=== PATIENT | female | born 1945 | race Caucasian/White ===

== ENCOUNTER 2017-12-09 06:13 | Inpatient (IN) | payer MEDICARE, BC ==
[2017-12-09] MEDS: ONDANSETRON 4 MG INJ IV ×3 (06:50→21:02)
[2017-12-09] MEDS: morphine 4 MG/ML VIAL IV (06:50)
[2017-12-09 07:02] LABS: ADD MAN DIFF? NO
[2017-12-09 07:07] LABS: BASOPHIL # 0.1 10^3/ul (0.0-0.1); BASOPHILS % 0.5 % (0.0-2.0); EOSINOPHILS # 0.1 10^3/ul (0.0-0.5); EOSINOPHILS % 0.8 % (0.0-7.0); HEMATOCRIT 38.4 % (37.0-47.0); HEMOGLOBIN 11.8 g/dl (12.0-16.0); LYMPHOCYTES # 0.6 10^3/ul (0.8-2.9); MEAN CORPUSCULAR HGB CONC 30.7 g/dl (32.0-37.0); MEAN CORPUSCULAR VOLUME 104.1 fl (82.0-101.0); MEAN PLATELET VOLUME 10.5 fl (7.4-10.4); MONOCYTE # 0.8 10^3/ul (0.3-0.9); MONOCYTES % 7.8 % (0.0-11.0); NEUTROPHIL # 8.4 10^3/ul (1.6-7.5); NEUTROPHILS % 84.4 % (39.0-77.0); PLATELET COUNT 258 10^3/UL (140-415); RED BLOOD COUNT 3.69 10^6/ul (4.20-5.40); RED CELL DISTRIBUTION WIDTH 14.4 % (11.5-14.5)
[2017-12-09] MEDS: SOD CHLORIDE 0.9% 100 ML (07:17)
[2017-12-09] MEDS: IOHEXOL 300MG/ML 150 ML BTL (07:17)
[2017-12-09] MEDS: HYDROmorphONE 0.5 MG/0.5 ML SYG IV (07:20)
[2017-12-09] MEDS: NITROGLYCERIN 2% 1 GM OINT PKT TD ×3 (07:23→07:42)
[2017-12-09 07:27] LABS: ANION GAP 20 (8-16); BLOOD UREA NITROGEN 57 mg/dl (7-20); CALCIUM 9.3 mg/dl (8.4-10.2); CARBON DIOXIDE 26 mmol/L (21-31); CHLORIDE 103 mmol/L (97-110); CREATININE 4.86 mg/dl (0.44-1.00); GLUCOSE 201 mg/dl (70-220); POTASSIUM 5.5 mmol/L (3.5-5.1); SODIUM 143 mmol/L (135-144)
[2017-12-09 07:31] LABS: INR 0.97; PARTIAL THROMBOPLASTIN TIME 32.5 Sec (25.0-35.0)
[2017-12-09 07:38] LABS: TROPONIN-I < 0.012 ng/ml (0.00-0.12)
[2017-12-09] MEDS: ASPIRIN 81 MG TAB PO (07:42)
[2017-12-09] MEDS: SOD CHLORIDE 0.9% 500 ML IV (07:51)
[2017-12-09] MEDS ORDERED: ONDANSETRON 4 MG INJ IV (08:00)
[2017-12-09] MEDS ORDERED: ACETAMINOPHEN 325 MG TAB PO ×2 (08:00→15:00)
[2017-12-09] MEDS ORDERED: NACL 0.9% 3 ML SYG IV (10:30)
[2017-12-09] MEDS ORDERED: morphine 2 MG INJ IV (10:30)
[2017-12-09 11:19] LABS: CREATINE KINASE 36 IU/L (23-200)
[2017-12-09 11:31] LABS: CK INDEX 4.1; CK-MB 1.49 ng/ml (0.0-2.4)
[2017-12-09 11:42] LABS: TROPONIN-I < 0.012 ng/ml (0.00-0.12)
[2017-12-09 13:31] LABS: CREATINE KINASE 34 IU/L (23-200)
[2017-12-09 13:44] LABS: CK INDEX 4.3; CK-MB 1.46 ng/ml (0.0-2.4)
[2017-12-09 13:47] LABS: TROPONIN-I < 0.012 ng/ml (0.00-0.12)
[2017-12-09] MEDS ORDERED: BISACODYL (EC) 5 MG TAB PO (15:00)
[2017-12-09] MEDS: SUCRALFATE 1 GM TAB PO ×2 (17:30→22:59)
[2017-12-09] MEDS: SEVELAMER CARBONATE 0.8 GM PKT PO (17:45)
[2017-12-09] MEDS: PANTOPRAZOLE (EC) 40 MG TAB PO (17:45)
[2017-12-09 19:24] LABS: CREATINE KINASE 31 IU/L (23-200)
[2017-12-09 19:37] LABS: CK INDEX 3.9; CK-MB 1.22 ng/ml (0.0-2.4); TROPONIN-I < 0.012 ng/ml (0.00-0.12)
[2017-12-09] MEDS: morphine LIQ (10 MG/5 ML) CUP PO (21:02)
[2017-12-09] MEDS: GABAPENTIN 100 MG CAP PO (22:59)
[2017-12-09] MEDS: ATORVASTATIN 40 MG TAB PO (22:59)
[2017-12-10] MEDS ORDERED: DEXTROSE 50% 50 ML SYRINGE IV ×2 (00:30)
[2017-12-10] MEDS ORDERED: GLUCOSE GEL 15 GRAM TUBE BUCCAL (00:30)
[2017-12-10] MEDS: INSULIN ASPART [NOVOLOG] 3 ML PEN SC ×5 (00:30→21:00)
[2017-12-10] MEDS ORDERED: GLUCOSE GEL 15 GRAM TUBE PO ×2 (00:30)
[2017-12-10] MEDS ORDERED: GLUCAGON 1 MG INJ IM (00:30)
[2017-12-10] MEDS: ALBUMIN HUMAN 25% 50 ML IV ×3 (00:44→20:39)
[2017-12-10 01:07] LABS: CREATINE KINASE 26 IU/L (23-200)
[2017-12-10 01:20] LABS: CK-MB 0.79 ng/ml (0.0-2.4)
[2017-12-10 01:21] LABS: TROPONIN-I < 0.012 ng/ml (0.00-0.12)
[2017-12-10 01:38] LABS: HEPATITIS B SURFACE ANTIGEN NEGATIVE (NEGATIVE)
[2017-12-10 01:56] LABS: HEPATITIS B SURFACE ANTIBODY POSITIVE (NEGATIVE)
[2017-12-10] MEDS: HYDROCODONE/APAP (5/325) TAB PO ×2 (02:55→08:51)
[2017-12-10] MEDS ORDERED: PANTOPRAZOLE 40 MG INJ IV (06:00)
[2017-12-10] MEDS: PANTOPRAZOLE (EC) 40 MG TAB PO ×2 (06:15→16:55)
[2017-12-10] MEDS: LEVOTHYROXINE 50 MCG TAB PO (06:15)
[2017-12-10] MEDS: morphine LIQ (10 MG/5 ML) CUP PO ×2 (06:21→12:37)
[2017-12-10] MEDS: SUCRALFATE 1 GM TAB PO ×5 (07:25→22:12)
[2017-12-10] MEDS: SEVELAMER CARBONATE 0.8 GM PKT PO ×3 (07:44→16:55)
[2017-12-10 08:59] LABS: CHOL/HDL RATIO 1.6 RATIO; HDL CHOLESTEROL 61 mg/dl (33-92); LDL CHOLESTEROL,CALCULATED 29 mg/dl; TRIGLYCERIDES 65 mg/dl (0-149)
[2017-12-10 08:59] LABS: CHOLESTEROL 103 mg/dl (100-200)
[2017-12-10] MEDS: GABAPENTIN 100 MG CAP PO ×3 (09:00→22:12)
[2017-12-10] MEDS: CHOLECALCIFEROL 1,000 UNIT TAB PO (09:00)
[2017-12-10] MEDS ORDERED: METOPROLOL 5 MG INJ (12:16)
[2017-12-10] MEDS ORDERED: METOPROLOL 5 MG INJ IV (12:30)
[2017-12-10] MEDS ORDERED: DIGOXIN 500 MCG INJ IV (12:40)
[2017-12-10] MEDS: DIGOXIN 500 MCG INJ IV (12:48)
[2017-12-10] MEDS: SOD CHLORIDE 0.9% 250 ML IV ×2 (14:02→21:12)
[2017-12-10] MEDS: FUROSEMIDE 20 MG TAB PO (14:59)
[2017-12-10] MEDS: FOLIC ACID 1 MG TAB PO (15:00)
[2017-12-10] MEDS: PIOGLITAZONE 45 MG TAB PO (15:00)
[2017-12-10] MEDS: ASPIRIN 81 MG TAB PO (15:01)
[2017-12-10] MEDS: AMIODARONE 150MG/D5W BOLUS 100 ML IV (19:04)
[2017-12-10] MEDS ORDERED: AMIODARONE 900 MG in DEXTROSE 5% 482 ML IV (20:00)
[2017-12-10] MEDS: ATORVASTATIN 40 MG TAB PO (22:12)
[2017-12-10] MEDS: HEPARIN 5,000 UNIT/0.5 ML VIAL SC (22:13)
[2017-12-11] MEDS: PHENYLephrine 20MG IN 250 ML 250 ML IV ×2 (00:53→12:11)
[2017-12-11] MEDS: ACETAMINOPHEN 325 MG TAB PO ×2 (00:54→16:56)
[2017-12-11 05:19] LABS: ADD MAN DIFF? NO
[2017-12-11 05:22] LABS: WHITE BLOOD COUNT 6.7 10^3/ul (4.8-10.8)
[2017-12-11 05:22] LABS: BASOPHILS % 0.4 % (0.0-2.0); EOSINOPHILS # 0.2 10^3/ul (0.0-0.5); EOSINOPHILS % 2.8 % (0.0-7.0); HEMOGLOBIN 10.1 g/dl (12.0-16.0); LYMPHOCYTES # 1.2 10^3/ul (0.8-2.9); LYMPHOCYTES % 17.1 % (15.0-51.0); MEAN CORPUSCULAR HEMOGLOBIN 31.9 pg (29.0-33.0); MEAN CORPUSCULAR HGB CONC 30.6 g/dl (32.0-37.0); MEAN CORPUSCULAR VOLUME 104.1 fl (82.0-101.0); MEAN PLATELET VOLUME 10.7 fl (7.4-10.4); MONOCYTE # 0.7 10^3/ul (0.3-0.9); MONOCYTES % 10.1 % (0.0-11.0); NEUTROPHIL # 4.6 10^3/ul (1.6-7.5); NEUTROPHILS % 69.2 % (39.0-77.0); PLATELET COUNT 257 10^3/UL (140-415); RED BLOOD COUNT 3.17 10^6/ul (4.20-5.40); RED CELL DISTRIBUTION WIDTH 14.4 % (11.5-14.5)
[2017-12-11 05:49] LABS: PHOSPHORUS 7.9 mg/dl (2.5-4.9)
[2017-12-11 05:49] LABS: ANION GAP 19 (8-16); BLOOD UREA NITROGEN 44 mg/dl (7-20); CARBON DIOXIDE 27 mmol/L (21-31); CHLORIDE 97 mmol/L (97-110); CREATININE 4.23 mg/dl (0.44-1.00); GLUCOSE 77 mg/dl (70-220); MAGNESIUM 2.2 mg/dl (1.7-2.5); SODIUM 138 mmol/L (135-144)
[2017-12-11] MEDS: HYDROCODONE/APAP (5/325) TAB PO ×2 (05:54→20:35)
[2017-12-11] MEDS: HEPARIN 5,000 UNIT/0.5 ML VIAL SC ×3 (06:28→21:12)
[2017-12-11] MEDS: PANTOPRAZOLE (EC) 40 MG TAB PO ×2 (06:29→16:56)
[2017-12-11] MEDS: LEVOTHYROXINE 50 MCG TAB PO (06:29)
[2017-12-11] MEDS: INSULIN ASPART [NOVOLOG] 3 ML PEN SC ×4 (06:30→21:00)
[2017-12-11] MEDS: SUCRALFATE 1 GM TAB PO ×4 (06:30→20:35)
[2017-12-11] MEDS: SEVELAMER CARBONATE 0.8 GM PKT PO ×3 (07:35→16:56)
[2017-12-11] MEDS: PIOGLITAZONE 15 MG TAB PO (09:34)
[2017-12-11] MEDS: FOLIC ACID 1 MG TAB PO (09:35)
[2017-12-11] MEDS: GABAPENTIN 100 MG CAP PO ×3 (09:35→20:35)
[2017-12-11] MEDS: ASPIRIN 81 MG TAB PO (09:35)
[2017-12-11] MEDS: CHOLECALCIFEROL 1,000 UNIT TAB PO (09:35)
[2017-12-11] MEDS: ALBUMIN HUMAN 25% 100 ML IV ×2 (10:50→16:57)
[2017-12-11] MEDS: SEVELAMER 800 MG TAB PO ×2 (11:07→16:56)
[2017-12-11] MEDS: CEFAZOLIN 1 GM/50 ML (PMX) 50 ML IVPB (16:00)
[2017-12-11] MEDS: ATORVASTATIN 40 MG TAB PO (20:35)
[2017-12-12] MEDS: ALBUMIN HUMAN 25% 100 ML IV (01:14)
[2017-12-12] MEDS: PHENYLephrine 20MG IN 250 ML 250 ML IV (01:16)
[2017-12-12] MEDS: morphine LIQ (10 MG/5 ML) CUP PO ×7 (01:24→21:43)
[2017-12-12] MEDS: HYDROCODONE/APAP (5/325) TAB PO (03:42)
[2017-12-12 03:44] LABS: ADD MAN DIFF? NO
[2017-12-12 03:50] LABS: WHITE BLOOD COUNT 7.6 10^3/ul (4.8-10.8)
[2017-12-12 03:50] LABS: ABNORMAL IP MESSAGE 1; BASOPHILS % 0.3 % (0.0-2.0); EOSINOPHILS # 0.2 10^3/ul (0.0-0.5); EOSINOPHILS % 2.1 % (0.0-7.0); HEMATOCRIT 33.9 % (37.0-47.0); HEMOGLOBIN 10.4 g/dl (12.0-16.0); LYMPHOCYTES # 0.5 10^3/ul (0.8-2.9); MEAN CORPUSCULAR HEMOGLOBIN 31.4 pg (29.0-33.0); MEAN CORPUSCULAR HGB CONC 30.7 g/dl (32.0-37.0); MEAN CORPUSCULAR VOLUME 102.4 fl (82.0-101.0); MEAN PLATELET VOLUME 10.3 fl (7.4-10.4); MONOCYTE # 0.6 10^3/ul (0.3-0.9); MONOCYTES % 7.2 % (0.0-11.0); NEUTROPHIL # 6.3 10^3/ul (1.6-7.5); NEUTROPHILS % 82.9 % (39.0-77.0); PLATELET COUNT 205 10^3/UL (140-415); RED BLOOD COUNT 3.31 10^6/ul (4.20-5.40); RED CELL DISTRIBUTION WIDTH 14.3 % (11.5-14.5)
[2017-12-12 04:12] LABS: LACTIC ACID 0.7 mmol/L (0.5-2.0)
[2017-12-12 04:14] LABS: ANION GAP 24 (8-16); BLOOD UREA NITROGEN 57 mg/dl (7-20); CALCIUM 8.9 mg/dl (8.4-10.2); CARBON DIOXIDE 23 mmol/L (21-31); CHLORIDE 94 mmol/L (97-110); GLUCOSE 95 mg/dl (70-220); POTASSIUM 5.4 mmol/L (3.5-5.1); SODIUM 136 mmol/L (135-144)
[2017-12-12 04:15] LABS: TROPONIN-I 0.121 ng/ml (0.00-0.12)
[2017-12-12 05:20] LABS: POSITIVE DIFF @See below
[2017-12-12] MEDS: LEVOTHYROXINE 50 MCG TAB PO ×2 (06:14→08:45)
[2017-12-12] MEDS: PANTOPRAZOLE (EC) 40 MG TAB PO ×2 (06:14→17:53)
[2017-12-12] MEDS: SUCRALFATE 1 GM TAB PO ×4 (06:14→20:42)
[2017-12-12] MEDS: HEPARIN 5,000 UNIT/0.5 ML VIAL SC ×3 (06:15→20:44)
[2017-12-12] MEDS: INSULIN ASPART [NOVOLOG] 3 ML PEN SC ×4 (07:35→20:46)
[2017-12-12] MEDS: SEVELAMER CARBONATE 0.8 GM PKT PO ×3 (08:44→17:54)
[2017-12-12] MEDS: SEVELAMER 800 MG TAB PO ×3 (08:44→17:53)
[2017-12-12] MEDS: CHOLECALCIFEROL 1,000 UNIT TAB PO (08:45)
[2017-12-12] MEDS: PIOGLITAZONE 15 MG TAB PO (08:45)
[2017-12-12] MEDS: FOLIC ACID 1 MG TAB PO (08:46)
[2017-12-12] MEDS: GABAPENTIN 100 MG CAP PO ×3 (08:46→20:42)
[2017-12-12] MEDS: ASPIRIN 81 MG TAB PO (08:46)
[2017-12-12] MEDS: MAGNESIUM CITRATE 300 ML BTL PO (14:37)
[2017-12-12] MEDS: SOD CHLORIDE 0.9% 500 ML IV (17:32)
[2017-12-12] MEDS: RANOLAZINE (SR) 500 MG TAB PO (20:42)
[2017-12-12] MEDS: ATORVASTATIN 40 MG TAB PO (20:42)
[2017-12-12] MEDS: ONDANSETRON 4 MG INJ IV (20:43)
[2017-12-12] MEDS: PHENYLephrine 40 MG in DEXTROSE 5% 496 ML IV (22:09)
[2017-12-13] MEDS: PANTOPRAZOLE (EC) 40 MG TAB PO ×2 (05:06→17:06)
[2017-12-13] MEDS: HEPARIN 5,000 UNIT/0.5 ML VIAL SC ×3 (05:08→21:37)
[2017-12-13 06:38] LABS: ANION GAP 24 (8-16); BLOOD UREA NITROGEN 68 mg/dl (7-20); CALCIUM 9.1 mg/dl (8.4-10.2); CARBON DIOXIDE 22 mmol/L (21-31); CHLORIDE 92 mmol/L (97-110); CREATININE 5.71 mg/dl (0.44-1.00); GLUCOSE 101 mg/dl (70-220); SODIUM 131 mmol/L (135-144)
[2017-12-13 07:00] LABS: POTASSIUM 6.7 mmol/L (3.5-5.1)
[2017-12-13] MEDS ORDERED: NA BICARBONATE 8.4% 50 ML SYG (07:58)
[2017-12-13] MEDS: NA BICARBONATE 8.4% 50 ML SYG IV (08:09)
[2017-12-13] MEDS: DEXTROSE 50% 50 ML SYRINGE IV (08:10)
[2017-12-13] MEDS: NA POLYST SULFON 15 GM/60 ML BTL PO (08:10)
[2017-12-13] MEDS: INSULIN REGULAR, HUMAN 100 UNIT/1 ML 3ML VIAL IV (08:12)
[2017-12-13] MEDS: CALCIUM GLUCONATE 10% 1 GM in DEXTROSE 5% 100 ML IVPB (08:24)
[2017-12-13] MEDS: SUCRALFATE 1 GM TAB PO ×4 (08:31→21:30)
[2017-12-13] MEDS: SEVELAMER 800 MG TAB PO ×3 (08:31→16:59)
[2017-12-13] MEDS: SEVELAMER CARBONATE 0.8 GM PKT PO ×3 (08:31→16:59)
[2017-12-13] MEDS: INSULIN ASPART [NOVOLOG] 3 ML PEN SC ×4 (08:32→21:00)
[2017-12-13] MEDS: FOLIC ACID 1 MG TAB PO (09:00)
[2017-12-13] MEDS: RANOLAZINE (SR) 500 MG TAB PO ×2 (09:00→21:30)
[2017-12-13] MEDS: ASPIRIN 81 MG TAB PO (09:00)
[2017-12-13] MEDS: GABAPENTIN 100 MG CAP PO ×3 (09:00→21:30)
[2017-12-13] MEDS: PIOGLITAZONE 15 MG TAB PO (09:00)
[2017-12-13] MEDS: CHOLECALCIFEROL 1,000 UNIT TAB PO (09:00)
[2017-12-13] MEDS: ONDANSETRON 4 MG INJ IV (10:36)
[2017-12-13] MEDS: ALBUMIN HUMAN 25% 50 ML IV (11:36)
[2017-12-13] MEDS: MIDODRINE 5 MG TAB NGT ×2 (13:00→16:59)
[2017-12-13] MEDS: ACETAMINOPHEN 325 MG TAB PO (13:05)
[2017-12-13] MEDS: HEPARIN 1000 UNITS/ML 10 ML INJ CATHETER (14:08)
[2017-12-13] MEDS: HYDROCORTISONE 100 MG INJ IV (21:30)
[2017-12-13] MEDS: ATORVASTATIN 40 MG TAB PO (21:30)
[2017-12-14] MEDS: PANTOPRAZOLE (EC) 40 MG TAB PO ×2 (05:43→17:48)
[2017-12-14] MEDS: HEPARIN 5,000 UNIT/0.5 ML VIAL SC ×3 (05:53→21:06)
[2017-12-14] MEDS: PHENYLephrine 40 MG in DEXTROSE 5% 496 ML IV (05:53)
[2017-12-14 06:00] LABS: ALANINE AMINOTRANSFERASE 24 IU/L (13-69); ALBUMIN 3.7 g/dl (3.3-4.9); ALBUMIN/GLOBULIN RATIO 1.42; ALKALINE PHOSPHATASE 125 IU/L (42-121); ANION GAP 21 (8-16); ASPARTATE AMINO TRANSFERASE 15 IU/L (15-46); BLOOD UREA NITROGEN 35 mg/dl (7-20); CALCIUM 9.3 mg/dl (8.4-10.2); CARBON DIOXIDE 26 mmol/L (21-31); CHLORIDE 95 mmol/L (97-110); CREATININE 3.81 mg/dl (0.44-1.00); GLUCOSE 181 mg/dl (70-220); SODIUM 137 mmol/L (135-144); TOTAL PROTEIN 6.3 g/dl (6.1-8.1)
[2017-12-14] MEDS: SUCRALFATE 1 GM TAB PO ×4 (06:01→21:04)
[2017-12-14] MEDS: ONDANSETRON 4 MG INJ IV ×3 (06:01→18:32)
[2017-12-14] MEDS: LEVOTHYROXINE 50 MCG TAB PO (06:01)
[2017-12-14] MEDS: ACETAMINOPHEN 325 MG TAB PO (07:18)
[2017-12-14] MEDS: SEVELAMER 800 MG TAB PO ×3 (08:00→17:47)
[2017-12-14] MEDS: SEVELAMER CARBONATE 0.8 GM PKT PO ×3 (08:00→17:48)
[2017-12-14] MEDS: INSULIN ASPART [NOVOLOG] 3 ML PEN SC ×4 (08:16→21:00)
[2017-12-14] MEDS: HYDROCORTISONE 100 MG INJ IV ×2 (08:20→21:05)
[2017-12-14] MEDS: CHOLECALCIFEROL 1,000 UNIT TAB PO (08:21)
[2017-12-14] MEDS: ASPIRIN 81 MG TAB PO (08:21)
[2017-12-14] MEDS: FOLIC ACID 1 MG TAB PO (08:21)
[2017-12-14] MEDS: PIOGLITAZONE 15 MG TAB PO (08:21)
[2017-12-14] MEDS: RANOLAZINE (SR) 500 MG TAB PO ×2 (08:21→21:04)
[2017-12-14] MEDS: GABAPENTIN 100 MG CAP PO ×3 (08:21→21:04)
[2017-12-14] MEDS: MIDODRINE 5 MG TAB NGT ×3 (08:26→17:47)
[2017-12-14] MEDS: ATORVASTATIN 40 MG TAB PO (21:04)
[2017-12-15] MEDS: HYDROCODONE/APAP (5/325) TAB PO (02:49)
[2017-12-15] MEDS: PANTOPRAZOLE (EC) 40 MG TAB PO ×2 (06:05→17:46)
[2017-12-15] MEDS: SUCRALFATE 1 GM TAB PO ×4 (06:05→20:42)
[2017-12-15] MEDS: LEVOTHYROXINE 50 MCG TAB PO (06:05)
[2017-12-15] MEDS: HEPARIN 5,000 UNIT/0.5 ML VIAL SC ×3 (06:06→22:38)
[2017-12-15 06:59] LABS: ADD MAN DIFF? NO
[2017-12-15] MEDS ORDERED: AMINOPHYLLINE (07:00)
[2017-12-15 07:01] LABS: ABNORMAL IP MESSAGE 1; BASOPHILS % 0.5 % (0.0-2.0); EOSINOPHILS % 0.2 % (0.0-7.0); HEMATOCRIT 31.8 % (37.0-47.0); LYMPHOCYTES # 0.3 10^3/ul (0.8-2.9); LYMPHOCYTES % 5.1 % (15.0-51.0); MEAN CORPUSCULAR HEMOGLOBIN 31.3 pg (29.0-33.0); MEAN CORPUSCULAR HGB CONC 31.4 g/dl (32.0-37.0); MEAN CORPUSCULAR VOLUME 99.4 fl (82.0-101.0); MEAN PLATELET VOLUME 11.1 fl (7.4-10.4); MONOCYTE # 0.6 10^3/ul (0.3-0.9); MONOCYTES % 8.9 % (0.0-11.0); NEUTROPHIL # 5.5 10^3/ul (1.6-7.5); NEUTROPHILS % 84.8 % (39.0-77.0); PLATELET COUNT 198 10^3/UL (140-415); RED CELL DISTRIBUTION WIDTH 13.8 % (11.5-14.5)
[2017-12-15 07:01] LABS: WHITE BLOOD COUNT 6.5 10^3/ul (4.8-10.8)
[2017-12-15 07:04] LABS: POSITIVE DIFF @See below
[2017-12-15 07:18] LABS: MAGNESIUM 2.3 mg/dl (1.7-2.5)
[2017-12-15 07:18] LABS: PHOSPHORUS 6.3 mg/dl (2.5-4.9)
[2017-12-15 07:19] LABS: ANION GAP 19 (8-16); BLOOD UREA NITROGEN 46 mg/dl (7-20); CARBON DIOXIDE 24 mmol/L (21-31); CHLORIDE 90 mmol/L (97-110); CREATININE 4.42 mg/dl (0.44-1.00); GLUCOSE 163 mg/dl (70-220); POTASSIUM 5.1 mmol/L (3.5-5.1); SODIUM 128 mmol/L (135-144)
[2017-12-15] MEDS: ONDANSETRON 4 MG INJ IV ×3 (07:31→18:48)
[2017-12-15] MEDS: INSULIN ASPART [NOVOLOG] 3 ML PEN SC ×4 (08:38→20:45)
[2017-12-15] MEDS: SEVELAMER 800 MG TAB PO ×2 (08:39→12:56)
[2017-12-15] MEDS: SEVELAMER CARBONATE 0.8 GM PKT PO ×3 (08:39→17:45)
[2017-12-15] MEDS: RANOLAZINE (SR) 500 MG TAB PO ×2 (08:53→20:42)
[2017-12-15] MEDS: GABAPENTIN 100 MG CAP PO ×3 (08:53→20:42)
[2017-12-15] MEDS: PIOGLITAZONE 15 MG TAB PO (08:53)
[2017-12-15] MEDS: MIDODRINE 5 MG TAB NGT ×3 (08:54→17:46)
[2017-12-15] MEDS: HYDROCORTISONE 100 MG INJ IV (08:54)
[2017-12-15] MEDS: FOLIC ACID 1 MG TAB PO (08:54)
[2017-12-15] MEDS: ASPIRIN 81 MG TAB PO (08:54)
[2017-12-15] MEDS: CHOLECALCIFEROL 1,000 UNIT TAB PO (08:54)
[2017-12-15] MEDS: REGADENOSON 0.4 MG/5 ML SYG (11:45)
[2017-12-15] MEDS: ATORVASTATIN 40 MG TAB PO (20:42)
[2017-12-15] MEDS: INSULIN GLARGINE [LANtus] 3 ML PEN SC (20:58)
[2017-12-15] MEDS: METOCLOPRAMIDE 10 MG INJ IV (21:13)
[2017-12-16] MEDS: ALBUMIN HUMAN 25% 50 ML IV ×2 (00:12→15:37)
[2017-12-16] MEDS: HEPARIN 1000 UNITS/ML 10 ML INJ CATHETER (01:48)
[2017-12-16] MEDS: ACETAMINOPHEN 325 MG TAB PO (04:14)
[2017-12-16] MEDS: METOCLOPRAMIDE 10 MG INJ IV ×2 (04:38→21:21)
[2017-12-16] MEDS: LEVOTHYROXINE 50 MCG TAB PO (06:13)
[2017-12-16] MEDS: HYDROCODONE/APAP (5/325) TAB PO (06:13)
[2017-12-16] MEDS: PANTOPRAZOLE (EC) 40 MG TAB PO ×2 (06:13→17:20)
[2017-12-16] MEDS: HEPARIN 5,000 UNIT/0.5 ML VIAL SC ×3 (06:17→21:44)
[2017-12-16 06:24] LABS: ADD MAN DIFF? NO
[2017-12-16 06:28] LABS: BASOPHIL # 0.1 10^3/ul (0.0-0.1); BASOPHILS % 0.8 % (0.0-2.0); EOSINOPHILS # 0.2 10^3/ul (0.0-0.5); EOSINOPHILS % 2.7 % (0.0-7.0); HEMATOCRIT 32.6 % (37.0-47.0); HEMOGLOBIN 10.2 g/dl (12.0-16.0); LYMPHOCYTES # 0.7 10^3/ul (0.8-2.9); LYMPHOCYTES % 10.7 % (15.0-51.0); MEAN CORPUSCULAR HGB CONC 31.3 g/dl (32.0-37.0); MEAN CORPUSCULAR VOLUME 99.1 fl (82.0-101.0); MEAN PLATELET VOLUME 10.9 fl (7.4-10.4); MONOCYTE # 0.8 10^3/ul (0.3-0.9); MONOCYTES % 12.2 % (0.0-11.0); NEUTROPHIL # 4.6 10^3/ul (1.6-7.5); PLATELET COUNT 271 10^3/UL (140-415); RED BLOOD COUNT 3.29 10^6/ul (4.20-5.40); RED CELL DISTRIBUTION WIDTH 13.7 % (11.5-14.5)
[2017-12-16 06:28] LABS: WHITE BLOOD COUNT 6.2 10^3/ul (4.8-10.8)
[2017-12-16 06:57] LABS: ALANINE AMINOTRANSFERASE 22 IU/L (13-69); ALKALINE PHOSPHATASE 115 IU/L (42-121); ANION GAP 19 (8-16); ASPARTATE AMINO TRANSFERASE 11 IU/L (15-46); BLOOD UREA NITROGEN 33 mg/dl (7-20); CALCIUM 8.9 mg/dl (8.4-10.2); CARBON DIOXIDE 25 mmol/L (21-31); CHLORIDE 95 mmol/L (97-110); CREATININE 3.26 mg/dl (0.44-1.00); GLUCOSE 91 mg/dl (70-220); POTASSIUM 4.3 mmol/L (3.5-5.1); SODIUM 135 mmol/L (135-144); TOTAL PROTEIN 5.3 g/dl (6.1-8.1)
[2017-12-16 07:02] LABS: PHOSPHORUS 3.8 mg/dl (2.5-4.9)
[2017-12-16 07:02] LABS: MAGNESIUM 2.3 mg/dl (1.7-2.5)
[2017-12-16] MEDS: INSULIN ASPART [NOVOLOG] 3 ML PEN SC ×4 (07:46→21:00)
[2017-12-16] MEDS: SEVELAMER CARBONATE 0.8 GM PKT PO ×3 (07:47→17:20)
[2017-12-16] MEDS: SUCRALFATE 1 GM TAB PO ×4 (07:47→21:18)
[2017-12-16] MEDS: RANOLAZINE (SR) 500 MG TAB PO (08:50)
[2017-12-16] MEDS: PIOGLITAZONE 15 MG TAB PO (08:51)
[2017-12-16] MEDS: GABAPENTIN 100 MG CAP PO ×3 (08:51→21:18)
[2017-12-16] MEDS: FOLIC ACID 1 MG TAB PO (08:51)
[2017-12-16] MEDS: ASPIRIN 81 MG TAB PO (08:51)
[2017-12-16] MEDS: CHOLECALCIFEROL 1,000 UNIT TAB PO (08:52)
[2017-12-16] MEDS: HYDROCORTISONE 100 MG INJ IV (08:53)
[2017-12-16] MEDS: MIDODRINE 5 MG TAB NGT ×3 (08:56→17:20)
[2017-12-16] MEDS: ATORVASTATIN 40 MG TAB PO (21:18)
[2017-12-16] MEDS: INSULIN GLARGINE [LANtus] 3 ML PEN SC (21:43)
[2017-12-17] MEDS: morphine LIQ (10 MG/5 ML) CUP PO ×2 (00:18→18:51)
[2017-12-17] MEDS: HYDROCODONE/APAP (5/325) TAB PO (04:25)
[2017-12-17] MEDS: LEVOTHYROXINE 50 MCG TAB PO (06:14)
[2017-12-17] MEDS: PANTOPRAZOLE (EC) 40 MG TAB PO ×2 (06:14→17:44)
[2017-12-17] MEDS: HEPARIN 5,000 UNIT/0.5 ML VIAL SC ×2 (06:45→13:18)
[2017-12-17] MEDS: INSULIN ASPART [NOVOLOG] 3 ML PEN SC ×4 (07:55→21:00)
[2017-12-17] MEDS: FOLIC ACID 1 MG TAB PO (08:46)
[2017-12-17] MEDS: PIOGLITAZONE 15 MG TAB PO (08:47)
[2017-12-17] MEDS: CHOLECALCIFEROL 1,000 UNIT TAB PO (08:47)
[2017-12-17] MEDS: SUCRALFATE 1 GM TAB PO ×4 (08:47→21:00)
[2017-12-17] MEDS: ASPIRIN 81 MG TAB PO (08:47)
[2017-12-17] MEDS: SEVELAMER CARBONATE 0.8 GM PKT PO ×3 (08:47→17:44)
[2017-12-17] MEDS: GABAPENTIN 100 MG CAP PO ×3 (08:48→21:00)
[2017-12-17] MEDS: HYDROCORTISONE 100 MG INJ IV (08:48)
[2017-12-17 09:11] LABS: ADD MAN DIFF? NO
[2017-12-17 09:15] LABS: WHITE BLOOD COUNT 7.6 10^3/ul (4.8-10.8)
[2017-12-17 09:15] LABS: BASOPHIL # 0.1 10^3/ul (0.0-0.1); BASOPHILS % 0.9 % (0.0-2.0); EOSINOPHILS # 0.2 10^3/ul (0.0-0.5); EOSINOPHILS % 2.9 % (0.0-7.0); HEMATOCRIT 32.9 % (37.0-47.0); HEMOGLOBIN 10.2 g/dl (12.0-16.0); LYMPHOCYTES # 0.9 10^3/ul (0.8-2.9); LYMPHOCYTES % 11.5 % (15.0-51.0); MEAN CORPUSCULAR HEMOGLOBIN 31.3 pg (29.0-33.0); MEAN CORPUSCULAR VOLUME 100.9 fl (82.0-101.0); MEAN PLATELET VOLUME 10.8 fl (7.4-10.4); MONOCYTES % 12.7 % (0.0-11.0); NEUTROPHIL # 5.4 10^3/ul (1.6-7.5); NEUTROPHILS % 71.1 % (39.0-77.0); PLATELET COUNT 317 10^3/UL (140-415); RED BLOOD COUNT 3.26 10^6/ul (4.20-5.40); RED CELL DISTRIBUTION WIDTH 13.9 % (11.5-14.5)
[2017-12-17 09:36] LABS: PHOSPHORUS 3.5 mg/dl (2.5-4.9)
[2017-12-17 09:36] LABS: ANION GAP 16 (8-16); BLOOD UREA NITROGEN 30 mg/dl (7-20); CALCIUM 9.2 mg/dl (8.4-10.2); CARBON DIOXIDE 27 mmol/L (21-31); CHLORIDE 95 mmol/L (97-110); CREATININE 3.14 mg/dl (0.44-1.00); GLUCOSE 106 mg/dl (70-220); MAGNESIUM 2.2 mg/dl (1.7-2.5); POTASSIUM 3.9 mmol/L (3.5-5.1); SODIUM 134 mmol/L (135-144)
[2017-12-17] MEDS: MIDODRINE 5 MG TAB NGT ×2 (10:06→13:21)
[2017-12-17] MEDS ORDERED: ALBUMIN HUMAN 25% 50 ML IV (10:30)
[2017-12-17 17:49] LABS: FLUID GLUCOSE 141 mg/dl
[2017-12-17 17:50] LABS: FLUID LD 185 U/L; FLUID TOTAL PROTEIN 2.8 g/dl; FLUID TYPE PLEURAL FLUID
[2017-12-17 18:13] LABS: FLD MN% 77.1 %; FLD PMN% 22.9 %; FLD RBC 0 /uL; FLD WBC 48 /cmm
[2017-12-17] MEDS: LIDOCAINE 1% (MDV) 10 ML INJ (18:27)
[2017-12-17 19:29] LABS: FLD COLOR YELLOW
[2017-12-17 19:29] LABS: FLD TYPE PLEURAL
[2017-12-17 19:30] LABS: FLD CLARITY HAZY
[2017-12-17] MEDS: LUBIPROSTONE 24 MCG CAP PO (21:00)
[2017-12-17] MEDS: ATORVASTATIN 40 MG TAB PO (21:00)
[2017-12-18] MEDS: HEPARIN 5,000 UNIT/0.5 ML VIAL SC ×4 (00:21→21:33)
[2017-12-18] MEDS: INSULIN GLARGINE [LANtus] 3 ML PEN SC ×2 (00:22→20:25)
[2017-12-18] MEDS: LEVOTHYROXINE 50 MCG TAB PO (06:08)
[2017-12-18] MEDS: PANTOPRAZOLE (EC) 40 MG TAB PO ×2 (06:08→17:16)
[2017-12-18] MEDS: morphine LIQ (10 MG/5 ML) CUP PO (06:09)
[2017-12-18 07:37] LABS: ADD MAN DIFF? NO
[2017-12-18 07:40] LABS: WHITE BLOOD COUNT 7.3 10^3/ul (4.8-10.8)
[2017-12-18 07:40] LABS: BASOPHILS % 0.5 % (0.0-2.0); EOSINOPHILS # 0.1 10^3/ul (0.0-0.5); EOSINOPHILS % 1.9 % (0.0-7.0); HEMATOCRIT 32.6 % (37.0-47.0); HEMOGLOBIN 9.9 g/dl (12.0-16.0); LYMPHOCYTES % 14.1 % (15.0-51.0); MEAN CORPUSCULAR HEMOGLOBIN 30.7 pg (29.0-33.0); MEAN CORPUSCULAR HGB CONC 30.4 g/dl (32.0-37.0); MEAN CORPUSCULAR VOLUME 101.2 fl (82.0-101.0); MONOCYTE # 0.7 10^3/ul (0.3-0.9); NEUTROPHIL # 5.4 10^3/ul (1.6-7.5); NEUTROPHILS % 73.7 % (39.0-77.0); PLATELET COUNT 320 10^3/UL (140-415); RED BLOOD COUNT 3.22 10^6/ul (4.20-5.40); RED CELL DISTRIBUTION WIDTH 14.2 % (11.5-14.5)
[2017-12-18] MEDS: INSULIN ASPART [NOVOLOG] 3 ML PEN SC ×4 (07:55→20:19)
[2017-12-18 08:03] LABS: MAGNESIUM 2.2 mg/dl (1.7-2.5)
[2017-12-18 08:03] LABS: PHOSPHORUS 3.8 mg/dl (2.5-4.9)
[2017-12-18 08:04] LABS: ALANINE AMINOTRANSFERASE 13 IU/L (13-69); ALBUMIN 3.3 g/dl (3.3-4.9); ALBUMIN/GLOBULIN RATIO 1.32; ALKALINE PHOSPHATASE 110 IU/L (42-121); ANION GAP 18 (8-16); ASPARTATE AMINO TRANSFERASE 18 IU/L (15-46); BLOOD UREA NITROGEN 40 mg/dl (7-20); CALCIUM 9.1 mg/dl (8.4-10.2); CARBON DIOXIDE 27 mmol/L (21-31); CHLORIDE 91 mmol/L (97-110); CREATININE 3.73 mg/dl (0.44-1.00); GLUCOSE 78 mg/dl (70-220); POTASSIUM 4.2 mmol/L (3.5-5.1); SODIUM 132 mmol/L (135-144); TOTAL PROTEIN 5.8 g/dl (6.1-8.1)
[2017-12-18] MEDS: SEVELAMER CARBONATE 0.8 GM PKT PO ×3 (08:34→17:15)
[2017-12-18] MEDS: LUBIPROSTONE 24 MCG CAP PO ×2 (08:34→20:19)
[2017-12-18] MEDS: GABAPENTIN 100 MG CAP PO ×3 (08:34→20:19)
[2017-12-18] MEDS: PIOGLITAZONE 15 MG TAB PO (08:34)
[2017-12-18] MEDS: FOLIC ACID 1 MG TAB PO (08:35)
[2017-12-18] MEDS: SUCRALFATE 1 GM TAB PO ×4 (08:35→20:19)
[2017-12-18] MEDS: CHOLECALCIFEROL 1,000 UNIT TAB PO (08:35)
[2017-12-18] MEDS: ASPIRIN 81 MG TAB PO (08:35)
[2017-12-18] MEDS ORDERED: ALBUMIN HUMAN 25% 50 ML IV (10:30)
[2017-12-18] MEDS ORDERED: SODIUM CHLORIDE 0.9% 1L BAG IV (10:30)
[2017-12-18] MEDS ORDERED: AL HYDROX/MG HYDROX/SIMETH 30 ML CUP PO (16:00)
[2017-12-18] MEDS: ATORVASTATIN 40 MG TAB PO (20:19)
[2017-12-19] MEDS: PANTOPRAZOLE (EC) 40 MG TAB PO ×2 (06:15→17:08)
[2017-12-19] MEDS: LEVOTHYROXINE 50 MCG TAB PO (06:15)
[2017-12-19] MEDS: HEPARIN 5,000 UNIT/0.5 ML VIAL SC ×3 (06:16→21:15)
[2017-12-19 06:48] LABS: ADD MAN DIFF? NO
[2017-12-19 06:52] LABS: WHITE BLOOD COUNT 7.8 10^3/ul (4.8-10.8)
[2017-12-19 06:52] LABS: BASOPHILS % 0.5 % (0.0-2.0); EOSINOPHILS # 0.2 10^3/ul (0.0-0.5); EOSINOPHILS % 2.4 % (0.0-7.0); HEMOGLOBIN 9.8 g/dl (12.0-16.0); LYMPHOCYTES # 0.8 10^3/ul (0.8-2.9); LYMPHOCYTES % 10.7 % (15.0-51.0); MEAN CORPUSCULAR HEMOGLOBIN 30.9 pg (29.0-33.0); MEAN CORPUSCULAR HGB CONC 30.6 g/dl (32.0-37.0); MEAN CORPUSCULAR VOLUME 100.9 fl (82.0-101.0); MEAN PLATELET VOLUME 10.6 fl (7.4-10.4); MONOCYTE # 0.7 10^3/ul (0.3-0.9); MONOCYTES % 9.3 % (0.0-11.0); NEUTROPHIL # 5.9 10^3/ul (1.6-7.5); NEUTROPHILS % 75.9 % (39.0-77.0); PLATELET COUNT 310 10^3/UL (140-415); RED BLOOD COUNT 3.17 10^6/ul (4.20-5.40); RED CELL DISTRIBUTION WIDTH 14.3 % (11.5-14.5)
[2017-12-19 07:07] LABS: HEMOGLOBIN A1C 5.6 % (0-5.9)
[2017-12-19 07:09] LABS: ALANINE AMINOTRANSFERASE 21 IU/L (13-69); ALKALINE PHOSPHATASE 109 IU/L (42-121); ANION GAP 16 (8-16); ASPARTATE AMINO TRANSFERASE 14 IU/L (15-46); BLOOD UREA NITROGEN 42 mg/dl (7-20); CALCIUM 8.9 mg/dl (8.4-10.2); CARBON DIOXIDE 26 mmol/L (21-31); CHLORIDE 90 mmol/L (97-110); CREATININE 4.03 mg/dl (0.44-1.00); GLUCOSE 70 mg/dl (70-220); POTASSIUM 4.2 mmol/L (3.5-5.1); SODIUM 128 mmol/L (135-144); TOTAL PROTEIN 5.5 g/dl (6.1-8.1)
[2017-12-19] MEDS: INSULIN ASPART [NOVOLOG] 3 ML PEN SC ×4 (07:55→21:00)
[2017-12-19] MEDS: CHOLECALCIFEROL 1,000 UNIT TAB PO (08:28)
[2017-12-19] MEDS: LUBIPROSTONE 24 MCG CAP PO ×2 (08:28→21:05)
[2017-12-19] MEDS: GABAPENTIN 100 MG CAP PO ×3 (08:29→21:05)
[2017-12-19] MEDS: PIOGLITAZONE 15 MG TAB PO (08:29)
[2017-12-19] MEDS: SUCRALFATE 1 GM TAB PO ×4 (08:29→21:05)
[2017-12-19] MEDS: FOLIC ACID 1 MG TAB PO (08:29)
[2017-12-19] MEDS: SEVELAMER CARBONATE 0.8 GM PKT PO ×3 (08:30→17:08)
[2017-12-19] MEDS: ASPIRIN 81 MG TAB PO ×2 (08:30→08:31)
[2017-12-19] MEDS: ATORVASTATIN 40 MG TAB PO (21:05)
[2017-12-20] MEDS: PANTOPRAZOLE (EC) 40 MG TAB PO ×2 (05:11→17:17)
[2017-12-20] MEDS: LEVOTHYROXINE 50 MCG TAB PO (05:11)
[2017-12-20] MEDS: HEPARIN 5,000 UNIT/0.5 ML VIAL SC ×3 (05:56→22:00)
[2017-12-20] MEDS ORDERED: AMIODARONE 150 MG INJ (07:00)
[2017-12-20 07:30] LABS: ANION GAP 24 (8-16); BLOOD UREA NITROGEN 52 mg/dl (7-20); CALCIUM 8.8 mg/dl (8.4-10.2); CARBON DIOXIDE 21 mmol/L (21-31); CHLORIDE 83 mmol/L (97-110); CREATININE 4.53 mg/dl (0.44-1.00); GLUCOSE 104 mg/dl (70-220); SODIUM 123 mmol/L (135-144)
[2017-12-20] MEDS: SEVELAMER CARBONATE 0.8 GM PKT PO ×3 (07:50→17:17)
[2017-12-20] MEDS: SUCRALFATE 1 GM TAB PO ×4 (07:50→20:28)
[2017-12-20] MEDS: LUBIPROSTONE 24 MCG CAP PO ×2 (08:16→20:29)
[2017-12-20] MEDS: GABAPENTIN 100 MG CAP PO ×3 (08:16→20:29)
[2017-12-20] MEDS: PIOGLITAZONE 15 MG TAB PO (08:16)
[2017-12-20] MEDS: CHOLECALCIFEROL 1,000 UNIT TAB PO (08:16)
[2017-12-20] MEDS: FOLIC ACID 1 MG TAB PO (08:16)
[2017-12-20] MEDS: ASPIRIN 81 MG TAB PO (08:17)
[2017-12-20] MEDS: INSULIN ASPART [NOVOLOG] 3 ML PEN SC ×4 (08:41→20:34)
[2017-12-20] MEDS ORDERED: NA PHOSPHATE/BIPHOS 133 ML ENEMA PR (15:00)
[2017-12-20] MEDS: POLYETHYLENE GLYCOL 17 GM PACKET PO (15:13)
[2017-12-20] MEDS: METOCLOPRAMIDE 10 MG INJ IV (17:27)
[2017-12-20] MEDS: ATORVASTATIN 40 MG TAB PO (20:28)
[2017-12-20] MEDS: MIDODRINE 5 MG TAB PO (20:29)
[2017-12-21] MEDS: METOCLOPRAMIDE 10 MG INJ IV (04:03)
[2017-12-21] MEDS: Insulin NOVOLOG SS MILD Algorithm (NPO/TPN/ENTERAL FEEDS) SC ×5 (04:30→22:16)
[2017-12-21] MEDS ORDERED: INSULIN ASPART [NOVOLOG] 3 ML PEN SC (05:00)
[2017-12-21] MEDS: HEPARIN 5,000 UNIT/0.5 ML VIAL SC ×3 (05:35→22:17)
[2017-12-21] MEDS: PANTOPRAZOLE (EC) 40 MG TAB PO ×2 (05:35→17:02)
[2017-12-21] MEDS: LEVOTHYROXINE 50 MCG TAB PO (05:36)
[2017-12-21] MEDS: SUCRALFATE 1 GM TAB PO ×4 (07:25→21:00)
[2017-12-21] MEDS: SEVELAMER CARBONATE 0.8 GM PKT PO ×3 (07:55→16:25)
[2017-12-21] MEDS: PIOGLITAZONE 15 MG TAB PO (08:31)
[2017-12-21] MEDS: LUBIPROSTONE 24 MCG CAP PO ×2 (08:32→21:00)
[2017-12-21] MEDS: ASPIRIN 81 MG TAB PO (08:32)
[2017-12-21] MEDS: POLYETHYLENE GLYCOL 17 GM PACKET PO (08:34)
[2017-12-21] MEDS: FOLIC ACID 1 MG TAB PO (08:34)
[2017-12-21] MEDS: CHOLECALCIFEROL 1,000 UNIT TAB PO (08:35)
[2017-12-21] MEDS: GABAPENTIN 100 MG CAP PO ×3 (08:35→21:00)
[2017-12-21 09:34] LABS: ALANINE AMINOTRANSFERASE 22 IU/L (13-69); ALBUMIN 3.4 g/dl (3.3-4.9); ALKALINE PHOSPHATASE 130 IU/L (42-121); ANION GAP 26 (8-16); ASPARTATE AMINO TRANSFERASE 26 IU/L (15-46); BLOOD UREA NITROGEN 61 mg/dl (7-20); CALCIUM 8.8 mg/dl (8.4-10.2); CARBON DIOXIDE 15 mmol/L (21-31); CHLORIDE 83 mmol/L (97-110); CREATININE 5.41 mg/dl (0.44-1.00); GLUCOSE 150 mg/dl (70-220)
[2017-12-21] MEDS: LIDOCAINE 1% (MDV) 10 ML INJ (09:50)
[2017-12-21 09:52] LABS: SODIUM 118 mmol/L (135-144)
[2017-12-21 09:53] LABS: POTASSIUM 5.6 mmol/L (3.5-5.1)
[2017-12-21] MEDS: ALBUMIN HUMAN 25% 50 ML IV ×2 (10:00→15:34)
[2017-12-21 11:23] LABS: Arterial Base Excess -9.6 mmol/L (-3.0-3); Arterial Blood Gas Oxygen Sat 92.6 mmHG (95.0-98.0); Arterial COHb 0.4 % (0.0-3.0); Arterial Fraction of Oxyhgb 92.1 % (93.0-99.0); Arterial HCO3 16.2 mmol/L (22.0-26.0); Arterial MetHb 0.1 % (0.0-1.5); Arterial Total Hemglobin 10.7 g/dl (12.0-18.0); MODE MASK - SIMPLE; Site LB
[2017-12-21] MEDS ORDERED: NA BICARBONATE 8.4% 50 ML SYG ×2 (11:27→11:28)
[2017-12-21] MEDS: DOPamine-D5W 1.6 MG/ML 250 ML IV (11:30)
[2017-12-21] MEDS ORDERED: DOPamine-D5W 1.6 MG/ML 250 ML IV (11:30)
[2017-12-21] MEDS: NORepinephrine 8MG/250 ML (PMX 250 ML IV (11:40)
[2017-12-21] MEDS: NA BICARBONATE 8.4% 50 ML SYG IV ×2 (11:41→15:30)
[2017-12-21 12:36] LABS: FLD MN% 33.8 %; FLD PMN% 66.2 %; FLD RBC 0 /uL; FLD WBC 343 /cmm
[2017-12-21 13:02] LABS: FLUID LD 244 U/L; FLUID TOTAL PROTEIN 2.7 g/dl; FLUID TYPE THORACENTESIS FLUID
[2017-12-21] MEDS ORDERED: VANCOMYCIN IV PER PHARMACY XX (13:30)
[2017-12-21 13:40] LABS: ADD MAN DIFF? NO
[2017-12-21 13:42] LABS: BASOPHILS % 0.2 % (0.0-2.0); HEMATOCRIT 34.8 % (37.0-47.0); HEMOGLOBIN 10.9 g/dl (12.0-16.0); LYMPHOCYTES # 0.7 10^3/ul (0.8-2.9); MEAN CORPUSCULAR HEMOGLOBIN 31.2 pg (29.0-33.0); MEAN CORPUSCULAR HGB CONC 31.3 g/dl (32.0-37.0); MEAN CORPUSCULAR VOLUME 99.7 fl (82.0-101.0); MEAN PLATELET VOLUME 10.8 fl (7.4-10.4); MONOCYTE # 1.3 10^3/ul (0.3-0.9); MONOCYTES % 5.7 % (0.0-11.0); NEUTROPHIL # 19.3 10^3/ul (1.6-7.5); NEUTROPHILS % 87.5 % (39.0-77.0); PLATELET COUNT 476 10^3/UL (140-415); RED BLOOD COUNT 3.49 10^6/ul (4.20-5.40); RED CELL DISTRIBUTION WIDTH 14.5 % (11.5-14.5)
[2017-12-21 13:42] LABS: WHITE BLOOD COUNT 22.1 10^3/ul (4.8-10.8)
[2017-12-21] MEDS: SOD CHLORIDE 0.9% 250 ML IV ×2 (13:46)
[2017-12-21 14:00] LABS: FLD CLARITY HAZY; FLD COLOR YELLOW; PATH REVIEW? YES
[2017-12-21 14:00] LABS: FLD TYPE THORACENTHESIS
[2017-12-21 14:02] LABS: LACTIC ACID 3.1 mmol/L (0.5-2.0)
[2017-12-21] MEDS ORDERED: NA BICARBONATE 8.4% 50 ML SYG IV (14:30)
[2017-12-21 14:54] LABS: AMMONIA 14 umol/l (9-30)
[2017-12-21 15:01] LABS: Arterial Base Excess -15.3 mmol/L (-3.0-3); Arterial Blood Gas Oxygen Sat 85.3 mmHG (95.0-98.0); Arterial COHb 0.9 % (0.0-3.0); Arterial Fraction of Oxyhgb 84.4 % (93.0-99.0); Arterial MetHb 0.1 % (0.0-1.5); Arterial Total Hemglobin 11.2 g/dl (12.0-18.0); Arterial pCO2 33.4 mmhg (35-45); MODE MASK - SIMPLE; Site LB
[2017-12-21] MEDS ORDERED: ALBUMIN HUMAN 25% 100 ML (15:24)
[2017-12-21] MEDS: ALBUMIN HUMAN 25% 100 ML IV ×3 (15:32→16:53)
[2017-12-21] MEDS: VANCOMYCIN 1.5 GM in SOD CHLORIDE 0.9% 250 ML IVPB (15:40)
[2017-12-21 15:43] LABS: TROPONIN-I 0.023 ng/ml (0.00-0.12)
[2017-12-21] MEDS: PHENYLephrine 160 MG in DEXTROSE 5% 484 ML IV ×3 (15:46→20:30)
[2017-12-21] MEDS: HEPARIN 1000 UNITS/ML 10 ML INJ CATHETER (18:11)
[2017-12-21] MEDS: LEVOFLOXACIN 750MG/D5W (PMX) 150 ML IVPB (18:43)
[2017-12-21] MEDS: VASOPRESSIN 60 UNIT in DEXTROSE 5% 57 ML IV (19:53)
[2017-12-21] MEDS: ATORVASTATIN 40 MG TAB PO (21:00)
[2017-12-21 21:19] LABS: AADO2 Arterial 358.9 mmHg (7.0-24.0); Arterial Base Excess -11.6 mmol/L (-3.0-3); Arterial Blood Gas Oxygen Sat 87.4 mmHG (95.0-98.0); Arterial COHb 0.7 % (0.0-3.0); Arterial Fraction of Oxyhgb 86.7 % (93.0-99.0); Arterial HCO3 14.5 mmol/L (22.0-26.0); Arterial MetHb 0.1 % (0.0-1.5); Arterial pCO2 33.2 mmhg (35-45); MODE MASK - SIMPLE; Site Right Brachial
[2017-12-21 22:59] LABS: ANION GAP 34 (8-16); BLOOD UREA NITROGEN 38 mg/dl (7-20); CALCIUM 8.5 mg/dl (8.4-10.2); CARBON DIOXIDE 16 mmol/L (21-31); CHLORIDE 80 mmol/L (97-110); CREATININE 3.84 mg/dl (0.44-1.00); GLUCOSE 176 mg/dl (70-220); POTASSIUM 4.6 mmol/L (3.5-5.1); SODIUM 125 mmol/L (135-144)
[2017-12-22] MEDS: ONDANSETRON 4 MG INJ IV
[2017-12-22] MEDS: ALBUMIN HUMAN 25% 100 ML IV ×3 (00:22→14:21)
[2017-12-22] MEDS: Insulin NOVOLOG SS MILD Algorithm (NPO/TPN/ENTERAL FEEDS) SC ×6 (00:53→21:00)
[2017-12-22] MEDS: VASOPRESSIN 60 UNIT in DEXTROSE 5% 57 ML IV ×2 (05:53→15:30)
[2017-12-22 05:54] LABS: ADD MAN DIFF? NO
[2017-12-22] MEDS: PANTOPRAZOLE (EC) 40 MG TAB PO ×2 (05:59→17:10)
[2017-12-22 06:03] LABS: BASOPHILS % 0.2 % (0.0-2.0); HEMATOCRIT 31.6 % (37.0-47.0); HEMOGLOBIN 9.8 g/dl (12.0-16.0); LYMPHOCYTES # 0.6 10^3/ul (0.8-2.9); LYMPHOCYTES % 3.1 % (15.0-51.0); MEAN CORPUSCULAR HEMOGLOBIN 30.7 pg (29.0-33.0); MEAN CORPUSCULAR VOLUME 99.1 fl (82.0-101.0); MEAN PLATELET VOLUME 11.4 fl (7.4-10.4); MONOCYTE # 1.3 10^3/ul (0.3-0.9); MONOCYTES % 6.4 % (0.0-11.0); NEUTROPHIL # 17.4 10^3/ul (1.6-7.5); NEUTROPHILS % 87.9 % (39.0-77.0); NUCLEATED RED BLOOD CELLS% 0.1 /100WBC (0.0-0.0); PLATELET COUNT 372 10^3/UL (140-415); RED BLOOD COUNT 3.19 10^6/ul (4.20-5.40); RED CELL DISTRIBUTION WIDTH 14.6 % (11.5-14.5)
[2017-12-22 06:03] LABS: WHITE BLOOD COUNT 19.8 10^3/ul (4.8-10.8)
[2017-12-22] MEDS: HEPARIN 5,000 UNIT/0.5 ML VIAL SC ×3 (06:03→22:00)
[2017-12-22 06:47] LABS: ANION GAP 32 (8-16); BLOOD UREA NITROGEN 42 mg/dl (7-20); CALCIUM 8.1 mg/dl (8.4-10.2); CARBON DIOXIDE 17 mmol/L (21-31); CHLORIDE 80 mmol/L (97-110); CREATININE 3.79 mg/dl (0.44-1.00); GLUCOSE 152 mg/dl (70-220); POTASSIUM 5.3 mmol/L (3.5-5.1); SODIUM 124 mmol/L (135-144)
[2017-12-22 06:51] LABS: PHOSPHORUS 4.1 mg/dl (2.5-4.9)
[2017-12-22 06:51] LABS: MAGNESIUM 2.1 mg/dl (1.7-2.5)
[2017-12-22] MEDS: LEVOTHYROXINE 50 MCG TAB PO (07:00)
[2017-12-22] MEDS: SUCRALFATE 1 GM TAB PO ×4 (07:05→20:31)
[2017-12-22 07:29] LABS: AADO2 Arterial 592.5 mmHg (7.0-24.0); Arterial Base Excess -7.1 mmol/L (-3.0-3); Arterial HCO3 18.6 mmol/L (22.0-26.0); Arterial pCO2 38.4 mmhg (35-45); MODE HFNC; Site LB
[2017-12-22] MEDS: SEVELAMER CARBONATE 0.8 GM PKT PO ×3 (07:35→16:37)
[2017-12-22] MEDS: POLYETHYLENE GLYCOL 17 GM PACKET PO (08:13)
[2017-12-22] MEDS: LUBIPROSTONE 24 MCG CAP PO ×2 (08:13→20:31)
[2017-12-22] MEDS: ASPIRIN 81 MG TAB PO (08:13)
[2017-12-22] MEDS: CHOLECALCIFEROL 1,000 UNIT TAB PO (08:13)
[2017-12-22] MEDS: PIOGLITAZONE 15 MG TAB PO (08:13)
[2017-12-22] MEDS: FOLIC ACID 1 MG TAB PO (08:13)
[2017-12-22] MEDS: GABAPENTIN 100 MG CAP PO ×3 (08:13→20:31)
[2017-12-22 10:53] LABS: LACTIC ACID 3.1 mmol/L (0.5-2.0)
[2017-12-22] MEDS: PHENYLephrine 160 MG in DEXTROSE 5% 484 ML IV (13:01)
[2017-12-22] MEDS ORDERED: KETAMINE (100 MG/ML) 5 ML VIAL (17:16)
[2017-12-22 19:08] LABS: FLD MN% 15.3 %; FLD PMN% 84.7 %; FLD RBC 1179000 /uL; FLD WBC 2624 /cmm
[2017-12-22 19:54] LABS: FLUID LD 3224 U/L; FLUID TYPE FLUID
[2017-12-22] MEDS: ATORVASTATIN 40 MG TAB PO (20:31)
[2017-12-22 21:03] LABS: FLD TYPE PERICARDIAL FLUID
[2017-12-22 21:03] LABS: FLD CLARITY BLOODY; FLD COLOR RED
[2017-12-23] MEDS: VASOPRESSIN 60 UNIT in DEXTROSE 5% 57 ML IV ×3 (00:46→19:41)
[2017-12-23] MEDS: Insulin NOVOLOG SS MILD Algorithm (NPO/TPN/ENTERAL FEEDS) SC ×6 (01:00→21:00)
[2017-12-23] MEDS: PANTOPRAZOLE (EC) 40 MG TAB PO ×2 (05:06→18:00)
[2017-12-23] MEDS: LEVOTHYROXINE 50 MCG TAB PO (05:06)
[2017-12-23] MEDS: HEPARIN 5,000 UNIT/0.5 ML VIAL SC ×2 (05:27→21:56)
[2017-12-23 06:01] LABS: ADD MAN DIFF? NO
[2017-12-23 06:07] LABS: WHITE BLOOD COUNT 17.8 10^3/ul (4.8-10.8)
[2017-12-23 06:07] LABS: ABNORMAL IP MESSAGE 1; BASOPHILS % 0.1 % (0.0-2.0); EOSINOPHILS % 0.1 % (0.0-7.0); LYMPHOCYTES # 0.5 10^3/ul (0.8-2.9); LYMPHOCYTES % 2.7 % (15.0-51.0); MEAN CORPUSCULAR HEMOGLOBIN 31.1 pg (29.0-33.0); MEAN CORPUSCULAR HGB CONC 32.1 g/dl (32.0-37.0); MEAN CORPUSCULAR VOLUME 96.9 fl (82.0-101.0); MEAN PLATELET VOLUME 10.9 fl (7.4-10.4); MONOCYTE # 0.8 10^3/ul (0.3-0.9); MONOCYTES % 4.3 % (0.0-11.0); NEUTROPHIL # 16.1 10^3/ul (1.6-7.5); NEUTROPHILS % 90.8 % (39.0-77.0); NUCLEATED RED BLOOD CELLS% 0.2 /100WBC (0.0-0.0); PLATELET COUNT 329 10^3/UL (140-415); RED BLOOD COUNT 2.89 10^6/ul (4.20-5.40); RED CELL DISTRIBUTION WIDTH 14.4 % (11.5-14.5)
[2017-12-23 06:24] LABS: POSITIVE DIFF @See below
[2017-12-23] MEDS: SUCRALFATE 1 GM TAB PO ×4 (07:05→21:55)
[2017-12-23 07:20] LABS: ANION GAP 17 (8-16); BLOOD UREA NITROGEN 31 mg/dl (7-20); CARBON DIOXIDE 28 mmol/L (21-31); CHLORIDE 92 mmol/L (97-110); CREATININE 2.71 mg/dl (0.44-1.00); GLUCOSE 73 mg/dl (70-220); POTASSIUM 3.7 mmol/L (3.5-5.1); SODIUM 133 mmol/L (135-144)
[2017-12-23 07:22] LABS: PHOSPHORUS 2.7 mg/dl (2.5-4.9)
[2017-12-23 07:30] LABS: LACTIC ACID 1.1 mmol/L (0.5-2.0)
[2017-12-23 07:34] LABS: AADO2 Arterial 409.5 mmHg (7.0-24.0); Allen Test ACCEPTAB; Arterial Base Excess 0.9 mmol/L (-3.0-3); Arterial Blood Gas Oxygen Sat 91.4 mmHG (95.0-98.0); Arterial COHb 0.3 % (0.0-3.0); Arterial HCO3 26.5 mmol/L (22.0-26.0); Arterial MetHb 0.1 % (0.0-1.5); Arterial Total Hemglobin 9.2 g/dl (12.0-18.0); Arterial pCO2 47.6 mmhg (35-45); MODE HFNC; Site Right Radial
[2017-12-23] MEDS: SEVELAMER CARBONATE 0.8 GM PKT PO ×3 (07:35→16:46)
[2017-12-23] MEDS: CHOLECALCIFEROL 1,000 UNIT TAB PO (08:07)
[2017-12-23] MEDS: POLYETHYLENE GLYCOL 17 GM PACKET PO (08:07)
[2017-12-23] MEDS: GABAPENTIN 100 MG CAP PO ×3 (08:07→21:55)
[2017-12-23] MEDS: FOLIC ACID 1 MG TAB PO (08:07)
[2017-12-23] MEDS: PIOGLITAZONE 15 MG TAB PO (08:07)
[2017-12-23] MEDS: LUBIPROSTONE 24 MCG CAP PO ×2 (08:07→21:55)
[2017-12-23] MEDS: ASPIRIN 81 MG TAB PO (08:07)
[2017-12-23] MEDS: morphine 2 MG INJ IV (10:50)
[2017-12-23] MEDS: VANCOMYCIN 1.25 GM in SOD CHLORIDE 0.9% 250 ML IVPB (11:24)
[2017-12-23 11:47] LABS: CREATINE KINASE 87 IU/L (23-200)
[2017-12-23 12:00] LABS: CK INDEX 9.3; CK-MB 8.11 ng/ml (0.0-2.4)
[2017-12-23] MEDS: ASPIRIN 325 MG TAB PO (12:40)
[2017-12-23 14:25] LABS: CREATINE KINASE 70 IU/L (23-200)
[2017-12-23 14:38] LABS: CK INDEX 8.4; CK-MB 5.86 ng/ml (0.0-2.4)
[2017-12-23] MEDS: LEVOFLOXACIN 500MG/D5W (PMX) 100 ML IVPB (15:37)
[2017-12-23] MEDS: ATORVASTATIN 40 MG TAB PO (21:55)
[2017-12-23 23:34] LABS: SITE Left Upper Forearm; TIME 2328
[2017-12-24] MEDS: Insulin NOVOLOG SS MILD Algorithm (NPO/TPN/ENTERAL FEEDS) SC ×4 (01:00→13:00)
[2017-12-24 05:54] LABS: ADD MAN DIFF? NO
[2017-12-24] MEDS: PANTOPRAZOLE (EC) 40 MG TAB PO ×2 (06:00→17:45)
[2017-12-24 06:02] LABS: ABNORMAL IP MESSAGE 1; BASOPHILS % 0.1 % (0.0-2.0); EOSINOPHILS # 0.1 10^3/ul (0.0-0.5); EOSINOPHILS % 0.7 % (0.0-7.0); HEMATOCRIT 27.4 % (37.0-47.0); HEMOGLOBIN 8.7 g/dl (12.0-16.0); LYMPHOCYTES # 0.5 10^3/ul (0.8-2.9); MEAN CORPUSCULAR HEMOGLOBIN 31.1 pg (29.0-33.0); MEAN CORPUSCULAR HGB CONC 31.8 g/dl (32.0-37.0); MEAN CORPUSCULAR VOLUME 97.9 fl (82.0-101.0); MEAN PLATELET VOLUME 10.8 fl (7.4-10.4); MONOCYTE # 0.7 10^3/ul (0.3-0.9); MONOCYTES % 4.3 % (0.0-11.0); NEUTROPHIL # 15.1 10^3/ul (1.6-7.5); NEUTROPHILS % 89.1 % (39.0-77.0); NUCLEATED RED BLOOD CELLS # 0.1 10^3/ul (0.0-0.0); NUCLEATED RED BLOOD CELLS% 0.4 /100WBC (0.0-0.0); PLATELET COUNT 304 10^3/UL (140-415); RED CELL DISTRIBUTION WIDTH 14.1 % (11.5-14.5)
[2017-12-24 06:02] LABS: WHITE BLOOD COUNT 16.9 10^3/ul (4.8-10.8)
[2017-12-24 06:10] LABS: POSITIVE DIFF @See below
[2017-12-24 06:30] LABS: PHOSPHORUS 2.4 mg/dl (2.5-4.9)
[2017-12-24 06:30] LABS: ANION GAP 14 (8-16); BLOOD UREA NITROGEN 37 mg/dl (7-20); CALCIUM 8.5 mg/dl (8.4-10.2); CARBON DIOXIDE 28 mmol/L (21-31); CHLORIDE 94 mmol/L (97-110); CREATININE 2.88 mg/dl (0.44-1.00); GLUCOSE 99 mg/dl (70-220); POTASSIUM 3.7 mmol/L (3.5-5.1); SODIUM 132 mmol/L (135-144)
[2017-12-24] MEDS: LEVOTHYROXINE 50 MCG TAB PO (07:00)
[2017-12-24] MEDS: SUCRALFATE 1 GM TAB PO ×4 (07:05→21:04)
[2017-12-24] MEDS: SEVELAMER CARBONATE 0.8 GM PKT PO ×3 (07:35→16:35)
[2017-12-24] MEDS: POLYETHYLENE GLYCOL 17 GM PACKET PO (08:51)
[2017-12-24] MEDS: FOLIC ACID 1 MG TAB PO (08:51)
[2017-12-24] MEDS: CHOLECALCIFEROL 1,000 UNIT TAB PO (09:00)
[2017-12-24] MEDS: LUBIPROSTONE 24 MCG CAP PO ×2 (09:00→21:03)
[2017-12-24] MEDS: HEPARIN 5,000 UNIT/0.5 ML VIAL SC ×2 (09:00→21:06)
[2017-12-24] MEDS: ASPIRIN 81 MG TAB PO (09:00)
[2017-12-24] MEDS: GABAPENTIN 100 MG CAP PO ×3 (09:00→21:04)
[2017-12-24] MEDS: PIOGLITAZONE 15 MG TAB PO (09:00)
[2017-12-24] MEDS ORDERED: PHENYLephrine 160 MG in DEXTROSE 5% 484 ML IV (10:00)
[2017-12-24] MEDS ORDERED: NITROGLYCERIN (IC) 100 MCG/ML INJ ×2 (10:40→12:06)
[2017-12-24] MEDS ORDERED: HEPARIN 1000 UNITS/ML 10 ML INJ (10:40)
[2017-12-24] MEDS ORDERED: VERAPAMIL 5 MG INJ (10:40)
[2017-12-24] MEDS ORDERED: IODIXANOL LOCM 100 ML BTL ×2 (10:40→11:38)
[2017-12-24] MEDS ORDERED: LIDOCAINE 1% (MDV) 20 ML INJ (10:40)
[2017-12-24] MEDS ORDERED: FENTAnyl 50 MCG/ML VIAL (10:42)
[2017-12-24] MEDS ORDERED: MIDAZOLAM 1 MG/ML 2 ML INJ (10:42)
[2017-12-24] MEDS ORDERED: BIVALIRUDIN 250MG /NS 50 ML 50 ML IVPB (11:27)
[2017-12-24] MEDS ORDERED: TICAGRELOR 90 MG TABLET (11:28)
[2017-12-24] MEDS ORDERED: ASPIRIN 325 MG TAB (12:15)
[2017-12-24] MEDS: VASOPRESSIN 60 UNIT in DEXTROSE 5% 57 ML IV (13:14)
[2017-12-24] MEDS ORDERED: ALBUMIN HUMAN 25% 50 ML IV (15:30)
[2017-12-24] MEDS ORDERED: SODIUM CHLORIDE 0.9% 1L BAG IV (15:30)
[2017-12-24] MEDS: Insulin NOVOLOG SS MILD Algorithm (SS with meals and bedtime) SC ×2 (16:34→21:00)
[2017-12-24] MEDS ORDERED: INSULIN ASPART [NOVOLOG] 3 ML PEN SC (17:05)
[2017-12-24] MEDS: ATORVASTATIN 40 MG TAB PO (21:04)
[2017-12-24] MEDS: TICAGRELOR 90 MG TABLET PO (21:06)
[2017-12-25] MEDS: ACCUCHECK AT 2AM (Patients on SS coverage) XX (02:00)
[2017-12-25] MEDS: VASOPRESSIN 60 UNIT in DEXTROSE 5% 57 ML IV ×2 (03:30→12:30)
[2017-12-25] MEDS: PANTOPRAZOLE (EC) 40 MG TAB PO ×2 (05:50→17:18)
[2017-12-25 06:00] LABS: ADD MAN DIFF? NO
[2017-12-25 06:09] LABS: WHITE BLOOD COUNT 15.6 10^3/ul (4.8-10.8)
[2017-12-25 06:09] LABS: ABNORMAL IP MESSAGE 1; BASOPHILS % 0.2 % (0.0-2.0); EOSINOPHILS # 0.2 10^3/ul (0.0-0.5); HEMATOCRIT 29.2 % (37.0-47.0); HEMOGLOBIN 9.2 g/dl (12.0-16.0); LYMPHOCYTES # 0.4 10^3/ul (0.8-2.9); LYMPHOCYTES % 2.8 % (15.0-51.0); MEAN CORPUSCULAR HEMOGLOBIN 30.9 pg (29.0-33.0); MEAN CORPUSCULAR HGB CONC 31.5 g/dl (32.0-37.0); MEAN PLATELET VOLUME 10.4 fl (7.4-10.4); MONOCYTE # 0.6 10^3/ul (0.3-0.9); NEUTROPHIL # 13.7 10^3/ul (1.6-7.5); NEUTROPHILS % 88.2 % (39.0-77.0); NUCLEATED RED BLOOD CELLS% 0.3 /100WBC (0.0-0.0); PLATELET COUNT 300 10^3/UL (140-415); RED BLOOD COUNT 2.98 10^6/ul (4.20-5.40)
[2017-12-25 06:24] LABS: POSITIVE DIFF @See below
[2017-12-25 06:29] LABS: MAGNESIUM 2.1 mg/dl (1.7-2.5)
[2017-12-25 06:33] LABS: ANION GAP 18 (8-16); BLOOD UREA NITROGEN 35 mg/dl (7-20); CALCIUM 8.5 mg/dl (8.4-10.2); CARBON DIOXIDE 25 mmol/L (21-31); CHLORIDE 92 mmol/L (97-110); CREATININE 2.93 mg/dl (0.44-1.00); GLUCOSE 104 mg/dl (70-220); POTASSIUM 3.6 mmol/L (3.5-5.1); SODIUM 131 mmol/L (135-144)
[2017-12-25] MEDS: LEVOTHYROXINE 50 MCG TAB PO (06:47)
[2017-12-25] MEDS: Insulin NOVOLOG SS MILD Algorithm (SS with meals and bedtime) SC ×4 (07:05→20:48)
[2017-12-25 07:21] LABS: PHOSPHORUS 2.2 mg/dl (2.5-4.9)
[2017-12-25] MEDS: SUCRALFATE 1 GM TAB PO ×4 (07:52→20:48)
[2017-12-25] MEDS: SEVELAMER CARBONATE 0.8 GM PKT PO ×3 (07:52→17:19)
[2017-12-25] MEDS: HEPARIN 5,000 UNIT/0.5 ML VIAL SC ×2 (10:03→20:47)
[2017-12-25] MEDS: POLYETHYLENE GLYCOL 17 GM PACKET PO (10:04)
[2017-12-25] MEDS: PIOGLITAZONE 15 MG TAB PO (10:04)
[2017-12-25] MEDS: FOLIC ACID 1 MG TAB PO (10:04)
[2017-12-25] MEDS: GABAPENTIN 100 MG CAP PO ×3 (10:04→20:47)
[2017-12-25] MEDS: CHOLECALCIFEROL 1,000 UNIT TAB PO (10:04)
[2017-12-25] MEDS: LUBIPROSTONE 24 MCG CAP PO ×2 (10:04→20:47)
[2017-12-25] MEDS: TICAGRELOR 90 MG TABLET PO ×2 (10:04→20:47)
[2017-12-25] MEDS: ASPIRIN 81 MG TAB PO (10:04)
[2017-12-25] MEDS: ALBUMIN HUMAN 25% 100 ML IV (11:38)
[2017-12-25] MEDS: LEVOFLOXACIN 500MG/D5W (PMX) 100 ML IVPB (16:08)
[2017-12-25] MEDS: ATORVASTATIN 40 MG TAB PO (20:48)
[2017-12-25 22:08] LABS: FORTY EIGHT HOUR READING 0 mm (0-9)
[2017-12-26] MEDS: ACCUCHECK AT 2AM (Patients on SS coverage) XX (02:15)
[2017-12-26 05:04] LABS: ADD MAN DIFF? NO
[2017-12-26 05:11] LABS: WHITE BLOOD COUNT 15.5 10^3/ul (4.8-10.8)
[2017-12-26 05:11] LABS: ABNORMAL IP MESSAGE 1; BASOPHIL # 0.1 10^3/ul (0.0-0.1); BASOPHILS % 0.3 % (0.0-2.0); EOSINOPHILS # 0.2 10^3/ul (0.0-0.5); EOSINOPHILS % 1.1 % (0.0-7.0); HEMATOCRIT 31.4 % (37.0-47.0); LYMPHOCYTES # 0.5 10^3/ul (0.8-2.9); LYMPHOCYTES % 3.2 % (15.0-51.0); MEAN CORPUSCULAR HEMOGLOBIN 31.3 pg (29.0-33.0); MEAN CORPUSCULAR HGB CONC 31.8 g/dl (32.0-37.0); MEAN CORPUSCULAR VOLUME 98.4 fl (82.0-101.0); MEAN PLATELET VOLUME 10.4 fl (7.4-10.4); MONOCYTE # 0.9 10^3/ul (0.3-0.9); MONOCYTES % 5.7 % (0.0-11.0); NEUTROPHIL # 13.3 10^3/ul (1.6-7.5); NEUTROPHILS % 85.8 % (39.0-77.0); NUCLEATED RED BLOOD CELLS% 0.2 /100WBC (0.0-0.0); PLATELET COUNT 347 10^3/UL (140-415); RED BLOOD COUNT 3.19 10^6/ul (4.20-5.40); RED CELL DISTRIBUTION WIDTH 14.1 % (11.5-14.5)
[2017-12-26 05:24] LABS: MAGNESIUM 2.1 mg/dl (1.7-2.5)
[2017-12-26 05:24] LABS: PHOSPHORUS 1.6 mg/dl (2.5-4.9)
[2017-12-26 05:25] LABS: ANION GAP 16 (8-16); BLOOD UREA NITROGEN 22 mg/dl (7-20); CALCIUM 8.9 mg/dl (8.4-10.2); CARBON DIOXIDE 29 mmol/L (21-31); CHLORIDE 94 mmol/L (97-110); CREATININE 2.29 mg/dl (0.44-1.00); GLUCOSE 131 mg/dl (70-220); POTASSIUM 3.7 mmol/L (3.5-5.1); SODIUM 135 mmol/L (135-144)
[2017-12-26 05:27] LABS: VANCOMYCIN,RANDOM 12.2 ug/ml
[2017-12-26 05:27] LABS: POSITIVE DIFF @See below
[2017-12-26] MEDS: PANTOPRAZOLE (EC) 40 MG TAB PO ×2 (06:14→17:15)
[2017-12-26] MEDS: LEVOTHYROXINE 50 MCG TAB PO (06:14)
[2017-12-26] MEDS: SUCRALFATE 1 GM TAB PO ×4 (07:59→21:09)
[2017-12-26] MEDS: SEVELAMER CARBONATE 0.8 GM PKT PO ×2 (07:59→11:35)
[2017-12-26] MEDS: Insulin NOVOLOG SS MILD Algorithm (SS with meals and bedtime) SC ×4 (08:04→21:13)
[2017-12-26] MEDS: LUBIPROSTONE 24 MCG CAP PO ×2 (08:46→21:09)
[2017-12-26] MEDS: ASPIRIN 81 MG TAB PO (08:46)
[2017-12-26] MEDS: FOLIC ACID 1 MG TAB PO (08:47)
[2017-12-26] MEDS: GABAPENTIN 100 MG CAP PO ×3 (08:47→21:09)
[2017-12-26] MEDS: CHOLECALCIFEROL 1,000 UNIT TAB PO (08:47)
[2017-12-26] MEDS: TICAGRELOR 90 MG TABLET PO ×2 (08:50→21:09)
[2017-12-26] MEDS: PIOGLITAZONE 15 MG TAB PO (08:51)
[2017-12-26] MEDS: POLYETHYLENE GLYCOL 17 GM PACKET PO (08:51)
[2017-12-26] MEDS: HEPARIN 5,000 UNIT/0.5 ML VIAL SC ×2 (08:53→21:09)
[2017-12-26] MEDS: VANCOMYCIN 1.25 GM in SOD CHLORIDE 0.9% 250 ML IVPB (11:28)
[2017-12-26 15:39] LABS: INR 1.13; PROTIME 14.7 Sec (11.9-14.9); PT RATIO 1.1
[2017-12-26 15:40] LABS: PARTIAL THROMBOPLASTIN TIME 33.2 Sec (25.0-35.0)
[2017-12-26] MEDS: NEUTRA-PHOS 250 MG PACKET PO ×2 (17:15→23:06)
[2017-12-26] MEDS: LIDOCAINE 1% (MDV) 10 ML INJ (18:01)
[2017-12-26] MEDS: ATORVASTATIN 40 MG TAB PO (21:09)
[2017-12-27] MEDS: ACCUCHECK AT 2AM (Patients on SS coverage) XX ×2 (02:43→21:09)
[2017-12-27] MEDS: ACETAMINOPHEN 325 MG TAB PO (02:43)
[2017-12-27 05:34] LABS: ADD MAN DIFF? NO
[2017-12-27 05:44] LABS: ABNORMAL IP MESSAGE 1; BASOPHIL # 0.1 10^3/ul (0.0-0.1); BASOPHILS % 0.4 % (0.0-2.0); EOSINOPHILS # 0.2 10^3/ul (0.0-0.5); EOSINOPHILS % 1.4 % (0.0-7.0); HEMATOCRIT 27.9 % (37.0-47.0); HEMOGLOBIN 8.9 g/dl (12.0-16.0); LYMPHOCYTES # 0.5 10^3/ul (0.8-2.9); LYMPHOCYTES % 3.7 % (15.0-51.0); MEAN CORPUSCULAR HEMOGLOBIN 30.9 pg (29.0-33.0); MEAN CORPUSCULAR HGB CONC 31.9 g/dl (32.0-37.0); MEAN CORPUSCULAR VOLUME 96.9 fl (82.0-101.0); MEAN PLATELET VOLUME 10.6 fl (7.4-10.4); MONOCYTE # 0.9 10^3/ul (0.3-0.9); MONOCYTES % 6.2 % (0.0-11.0); NEUTROPHIL # 11.7 10^3/ul (1.6-7.5); NEUTROPHILS % 84.1 % (39.0-77.0); NUCLEATED RED BLOOD CELLS% 0.1 /100WBC (0.0-0.0); PLATELET COUNT 319 10^3/UL (140-415); RED BLOOD COUNT 2.88 10^6/ul (4.20-5.40); RED CELL DISTRIBUTION WIDTH 14.5 % (11.5-14.5)
[2017-12-27 05:44] LABS: WHITE BLOOD COUNT 13.9 10^3/ul (4.8-10.8)
[2017-12-27 05:53] LABS: POSITIVE DIFF @See below
[2017-12-27 06:10] LABS: ANION GAP 15 (8-16); BLOOD UREA NITROGEN 30 mg/dl (7-20); CALCIUM 8.5 mg/dl (8.4-10.2); CARBON DIOXIDE 27 mmol/L (21-31); CHLORIDE 94 mmol/L (97-110); CREATININE 2.91 mg/dl (0.44-1.00); GLUCOSE 92 mg/dl (70-220); POTASSIUM 3.9 mmol/L (3.5-5.1); SODIUM 132 mmol/L (135-144)
[2017-12-27 06:16] LABS: PHOSPHORUS 2.3 mg/dl (2.5-4.9)
[2017-12-27] MEDS: PANTOPRAZOLE (EC) 40 MG TAB PO ×2 (06:26→17:23)
[2017-12-27] MEDS: LEVOTHYROXINE 50 MCG TAB PO (06:26)
[2017-12-27] MEDS: Insulin NOVOLOG SS MILD Algorithm (SS with meals and bedtime) SC ×4 (07:05→21:00)
[2017-12-27] MEDS: SUCRALFATE 1 GM TAB PO ×4 (07:58→21:10)
[2017-12-27] MEDS: LUBIPROSTONE 24 MCG CAP PO ×2 (08:25→21:00)
[2017-12-27] MEDS: POLYETHYLENE GLYCOL 17 GM PACKET PO (08:25)
[2017-12-27] MEDS: NEUTRA-PHOS 250 MG PACKET PO ×3 (08:25→21:00)
[2017-12-27] MEDS: GABAPENTIN 100 MG CAP PO ×3 (08:26→21:10)
[2017-12-27] MEDS: CHOLECALCIFEROL 1,000 UNIT TAB PO (08:26)
[2017-12-27] MEDS: PIOGLITAZONE 15 MG TAB PO (08:26)
[2017-12-27] MEDS: FOLIC ACID 1 MG TAB PO (08:27)
[2017-12-27] MEDS: HEPARIN 5,000 UNIT/0.5 ML VIAL SC ×2 (08:27→21:00)
[2017-12-27] MEDS: TICAGRELOR 90 MG TABLET PO ×2 (08:27→21:21)
[2017-12-27] MEDS: ASPIRIN 81 MG TAB PO (08:27)
[2017-12-27] MEDS: MIDODRINE 5 MG TAB PO (10:53)
[2017-12-27] MEDS: ALBUMIN HUMAN 25% 100 ML IV (12:14)
[2017-12-27] MEDS: BISACODYL 10 MG SUPP PR (15:43)
[2017-12-27] MEDS: LEVOFLOXACIN 500MG/D5W (PMX) 100 ML IVPB (15:43)
[2017-12-27] MEDS: ATORVASTATIN 40 MG TAB PO (21:10)
[2017-12-27 22:48] LABS: SEVENTY TWO HOUR READING 0 mm (0-9)
[2017-12-28] MEDS: PANTOPRAZOLE (EC) 40 MG TAB PO ×2 (04:07→17:32)
[2017-12-28] MEDS: ACETAMINOPHEN 325 MG TAB PO ×3 (04:07→18:59)
[2017-12-28] MEDS: LEVOTHYROXINE 50 MCG TAB PO (06:37)
[2017-12-28] MEDS: Insulin NOVOLOG SS MILD Algorithm (SS with meals and bedtime) SC ×4 (07:25→21:05)
[2017-12-28 08:00] LABS: ABNORMAL IP MESSAGE 1; HEMOGLOBIN 9.1 g/dl (12.0-16.0); MEAN CORPUSCULAR HEMOGLOBIN 31.2 pg (29.0-33.0); MEAN CORPUSCULAR HGB CONC 32.5 g/dl (32.0-37.0); MEAN CORPUSCULAR VOLUME 95.9 fl (82.0-101.0); MEAN PLATELET VOLUME 10.1 fl (7.4-10.4); PLATELET COUNT 322 10^3/UL (140-415); RED BLOOD COUNT 2.92 10^6/ul (4.20-5.40); RED CELL DISTRIBUTION WIDTH 14.6 % (11.5-14.5)
[2017-12-28 08:00] LABS: WHITE BLOOD COUNT 17.4 10^3/ul (4.8-10.8)
[2017-12-28 08:02] LABS: ADD MAN DIFF? YES; POSITIVE DIFF @See below
[2017-12-28] MEDS ORDERED: ALBUMIN HUMAN 25% 50 ML IV (08:30)
[2017-12-28] MEDS ORDERED: SODIUM CHLORIDE 0.9% 1L BAG IV (08:30)
[2017-12-28] MEDS: CHOLECALCIFEROL 1,000 UNIT TAB PO (08:48)
[2017-12-28] MEDS: POLYETHYLENE GLYCOL 17 GM PACKET PO (08:48)
[2017-12-28] MEDS: GABAPENTIN 100 MG CAP PO ×3 (08:48→21:03)
[2017-12-28] MEDS: TICAGRELOR 90 MG TABLET PO ×3 (08:49→21:04)
[2017-12-28] MEDS: SUCRALFATE 1 GM TAB PO ×4 (08:49→21:03)
[2017-12-28] MEDS: NEUTRA-PHOS 250 MG PACKET PO ×3 (08:49→21:02)
[2017-12-28] MEDS: ASPIRIN 81 MG TAB PO (08:49)
[2017-12-28] MEDS: FOLIC ACID 1 MG TAB PO (08:49)
[2017-12-28] MEDS: LUBIPROSTONE 24 MCG CAP PO ×2 (08:49→21:02)
[2017-12-28] MEDS: HEPARIN 5,000 UNIT/0.5 ML VIAL SC (08:50)
[2017-12-28 10:04] LABS: ANISOCYTOSIS 1+ (0-0); BAND NEUTROPHILS #M 0.1 10^3/ul (0.0-0.6); BAND NEUTROPHILS % (M) 1 % (0-4); EOSINOPHILS % (M) 4 % (0-7); ERYTHROBLAST% (NRBC) (M) 1 % (0-0); LYMPHOCYTES #M 0.3 10^3/ul (0.8-2.9); LYMPHOCYTES % (M) 2 % (15-51); MONOCYTES % (M) 6 % (0-11); PLATELET ESTIMATE NORMAL; POLYCHROMASIA 2+ (0-0); REACTIVE LYMPHOCYTES #M 0.3 10^3/ul (0.0-0.0); REACTIVE LYMPHOCYTES% (M) 2 % (0-0); SEG NEUT #M 14.8 10^3/ul (1.6-7.5); SEGMENTED NEUTROPHILS (M) % 85 % (39-77); SMUDGE%M 5 % (0-0)
[2017-12-28] MEDS: LIDOCAINE 1% (MDV) 10 ML INJ (11:39)
[2017-12-28] MEDS: PIOGLITAZONE 15 MG TAB PO (12:18)
[2017-12-28] MEDS: ATORVASTATIN 40 MG TAB PO (21:03)
[2017-12-29] MEDS: ACCUCHECK AT 2AM (Patients on SS coverage) XX (02:00)
[2017-12-29] MEDS: LEVOTHYROXINE 50 MCG TAB PO (06:19)
[2017-12-29] MEDS: PANTOPRAZOLE (EC) 40 MG TAB PO ×2 (06:19→17:13)
[2017-12-29] MEDS: SUCRALFATE 1 GM TAB PO ×4 (07:25→20:54)
[2017-12-29] MEDS: Insulin NOVOLOG SS MILD Algorithm (SS with meals and bedtime) SC ×4 (07:25→20:54)
[2017-12-29 07:47] LABS: ADD MAN DIFF? NO
[2017-12-29] MEDS: ACETAMINOPHEN 325 MG TAB PO (07:48)
[2017-12-29 07:54] LABS: ABNORMAL IP MESSAGE 1; BASOPHIL # 0.1 10^3/ul (0.0-0.1); BASOPHILS % 0.3 % (0.0-2.0); EOSINOPHILS # 0.1 10^3/ul (0.0-0.5); EOSINOPHILS % 0.4 % (0.0-7.0); HEMATOCRIT 28.4 % (37.0-47.0); HEMOGLOBIN 8.9 g/dl (12.0-16.0); LYMPHOCYTES # 0.4 10^3/ul (0.8-2.9); MEAN CORPUSCULAR HEMOGLOBIN 30.9 pg (29.0-33.0); MEAN CORPUSCULAR HGB CONC 31.3 g/dl (32.0-37.0); MEAN CORPUSCULAR VOLUME 98.6 fl (82.0-101.0); MEAN PLATELET VOLUME 10.3 fl (7.4-10.4); MONOCYTE # 1.1 10^3/ul (0.3-0.9); MONOCYTES % 6.2 % (0.0-11.0); NEUTROPHIL # 15.8 10^3/ul (1.6-7.5); NEUTROPHILS % 87.5 % (39.0-77.0); PLATELET COUNT 278 10^3/UL (140-415); RED BLOOD COUNT 2.88 10^6/ul (4.20-5.40); RED CELL DISTRIBUTION WIDTH 14.9 % (11.5-14.5)
[2017-12-29 07:58] LABS: POSITIVE DIFF @See below
[2017-12-29 08:27] LABS: ANION GAP 12 (8-16); BLOOD UREA NITROGEN 23 mg/dl (7-20); CALCIUM 8.3 mg/dl (8.4-10.2); CARBON DIOXIDE 29 mmol/L (21-31); CHLORIDE 98 mmol/L (97-110); CREATININE 2.45 mg/dl (0.44-1.00); GLUCOSE 97 mg/dl (70-220); POTASSIUM 4.2 mmol/L (3.5-5.1); SODIUM 135 mmol/L (135-144)
[2017-12-29 08:30] LABS: PHOSPHORUS 3.1 mg/dl (2.5-4.9)
[2017-12-29 08:30] LABS: MAGNESIUM 1.9 mg/dl (1.7-2.5)
[2017-12-29] MEDS: NEUTRA-PHOS 250 MG PACKET PO ×2 (08:43→13:58)
[2017-12-29] MEDS: POLYETHYLENE GLYCOL 17 GM PACKET PO (08:43)
[2017-12-29] MEDS: FOLIC ACID 1 MG TAB PO (08:44)
[2017-12-29] MEDS: CHOLECALCIFEROL 1,000 UNIT TAB PO (08:44)
[2017-12-29] MEDS: LUBIPROSTONE 24 MCG CAP PO ×2 (08:44→20:53)
[2017-12-29] MEDS: ASPIRIN 81 MG TAB PO (08:44)
[2017-12-29] MEDS: GABAPENTIN 100 MG CAP PO ×3 (08:44→20:54)
[2017-12-29] MEDS: PIOGLITAZONE 15 MG TAB PO (08:44)
[2017-12-29] MEDS: TICAGRELOR 90 MG TABLET PO ×2 (08:46→21:09)
[2017-12-29] MEDS: ATORVASTATIN 40 MG TAB PO (20:54)
[2017-12-30] MEDS: ACETAMINOPHEN 325 MG TAB PO ×2 (00:02→07:42)
[2017-12-30] MEDS: ACCUCHECK AT 2AM (Patients on SS coverage) XX (02:00)
[2017-12-30] MEDS ORDERED: ALBUMIN HUMAN 25% 50 ML IV (06:30)
[2017-12-30] MEDS ORDERED: SODIUM CHLORIDE 0.9% 1L BAG IV (06:30)
[2017-12-30] MEDS: PANTOPRAZOLE (EC) 40 MG TAB PO ×2 (06:54→17:27)
[2017-12-30] MEDS: SUCRALFATE 1 GM TAB PO ×4 (06:54→20:32)
[2017-12-30] MEDS: LEVOTHYROXINE 50 MCG TAB PO (06:54)
[2017-12-30 07:18] LABS: ADD MAN DIFF? NO
[2017-12-30] MEDS: Insulin NOVOLOG SS MILD Algorithm (SS with meals and bedtime) SC ×4 (07:25→20:44)
[2017-12-30 07:27] LABS: WHITE BLOOD COUNT 24.7 10^3/ul (4.8-10.8)
[2017-12-30 07:27] LABS: ABNORMAL IP MESSAGE 1; BASOPHIL # 0.1 10^3/ul (0.0-0.1); BASOPHILS % 0.2 % (0.0-2.0); EOSINOPHILS # 0.1 10^3/ul (0.0-0.5); EOSINOPHILS % 0.2 % (0.0-7.0); HEMATOCRIT 32.7 % (37.0-47.0); HEMOGLOBIN 10.4 g/dl (12.0-16.0); LYMPHOCYTES # 0.3 10^3/ul (0.8-2.9); LYMPHOCYTES % 1.3 % (15.0-51.0); MEAN CORPUSCULAR HEMOGLOBIN 30.8 pg (29.0-33.0); MEAN CORPUSCULAR HGB CONC 31.8 g/dl (32.0-37.0); MEAN CORPUSCULAR VOLUME 96.7 fl (82.0-101.0); MONOCYTE # 1.2 10^3/ul (0.3-0.9); NEUTROPHIL # 22.2 10^3/ul (1.6-7.5); PLATELET COUNT 286 10^3/UL (140-415); RED BLOOD COUNT 3.38 10^6/ul (4.20-5.40); RED CELL DISTRIBUTION WIDTH 15.1 % (11.5-14.5)
[2017-12-30 07:37] LABS: POSITIVE DIFF @See below
[2017-12-30 07:58] LABS: PHOSPHORUS 5.1 mg/dl (2.5-4.9)
[2017-12-30 07:58] LABS: ANION GAP 19 (8-16); BLOOD UREA NITROGEN 36 mg/dl (7-20); CALCIUM 7.8 mg/dl (8.4-10.2); CARBON DIOXIDE 24 mmol/L (21-31); CHLORIDE 93 mmol/L (97-110); CREATININE 3.07 mg/dl (0.44-1.00); GLUCOSE 104 mg/dl (70-220); MAGNESIUM 1.9 mg/dl (1.7-2.5); POTASSIUM 4.4 mmol/L (3.5-5.1); SODIUM 132 mmol/L (135-144)
[2017-12-30] MEDS: FOLIC ACID 1 MG TAB PO (08:50)
[2017-12-30] MEDS: GABAPENTIN 100 MG CAP PO ×3 (08:50→20:32)
[2017-12-30] MEDS: ASPIRIN 81 MG TAB PO (08:50)
[2017-12-30] MEDS: PIOGLITAZONE 15 MG TAB PO (08:50)
[2017-12-30] MEDS: LUBIPROSTONE 24 MCG CAP PO ×2 (08:50→20:34)
[2017-12-30] MEDS: CHOLECALCIFEROL 1,000 UNIT TAB PO (08:50)
[2017-12-30] MEDS: POLYETHYLENE GLYCOL 17 GM PACKET PO (08:50)
[2017-12-30] MEDS: TICAGRELOR 90 MG TABLET PO ×2 (08:51→20:43)
[2017-12-30] MEDS: METOPROLOL 25 MG TAB PO ×2 (12:10→20:34)
[2017-12-30] MEDS: morphine 2 MG INJ IV (12:19)
[2017-12-30] MEDS: ATORVASTATIN 40 MG TAB PO (20:32)
[2017-12-31] MEDS: ACCUCHECK AT 2AM (Patients on SS coverage) XX (02:00)
[2017-12-31] MEDS: SUCRALFATE 1 GM TAB PO ×4 (06:14→21:00)
[2017-12-31] MEDS: LEVOTHYROXINE 50 MCG TAB PO (06:14)
[2017-12-31] MEDS: PANTOPRAZOLE (EC) 40 MG TAB PO ×2 (06:14→18:51)
[2017-12-31] MEDS: Insulin NOVOLOG SS MILD Algorithm (SS with meals and bedtime) SC ×4 (07:25→21:00)
[2017-12-31 08:11] LABS: ADD MAN DIFF? NO
[2017-12-31 08:18] LABS: ABNORMAL IP MESSAGE 1; BASOPHIL # 0.1 10^3/ul (0.0-0.1); BASOPHILS % 0.4 % (0.0-2.0); EOSINOPHILS # 0.2 10^3/ul (0.0-0.5); EOSINOPHILS % 1.2 % (0.0-7.0); HEMOGLOBIN 9.7 g/dl (12.0-16.0); LYMPHOCYTES # 0.5 10^3/ul (0.8-2.9); LYMPHOCYTES % 2.6 % (15.0-51.0); MEAN CORPUSCULAR HEMOGLOBIN 30.5 pg (29.0-33.0); MEAN CORPUSCULAR HGB CONC 31.3 g/dl (32.0-37.0); MEAN CORPUSCULAR VOLUME 97.5 fl (82.0-101.0); MEAN PLATELET VOLUME 10.3 fl (7.4-10.4); MONOCYTE # 1.1 10^3/ul (0.3-0.9); MONOCYTES % 5.5 % (0.0-11.0); NEUTROPHIL # 16.7 10^3/ul (1.6-7.5); NEUTROPHILS % 87.8 % (39.0-77.0); PLATELET COUNT 316 10^3/UL (140-415); RED BLOOD COUNT 3.18 10^6/ul (4.20-5.40)
[2017-12-31 08:28] LABS: POSITIVE DIFF @See below
[2017-12-31 08:37] LABS: ANION GAP 15 (8-16); BLOOD UREA NITROGEN 22 mg/dl (7-20); CARBON DIOXIDE 29 mmol/L (21-31); CHLORIDE 96 mmol/L (97-110); CREATININE 2.23 mg/dl (0.44-1.00); GLUCOSE 84 mg/dl (70-220); POTASSIUM 3.9 mmol/L (3.5-5.1); SODIUM 136 mmol/L (135-144)
[2017-12-31 08:39] LABS: PHOSPHORUS 3.7 mg/dl (2.5-4.9)
[2017-12-31 08:39] LABS: MAGNESIUM 1.9 mg/dl (1.7-2.5)
[2017-12-31] MEDS: POLYETHYLENE GLYCOL 17 GM PACKET PO (09:00)
[2017-12-31] MEDS: GABAPENTIN 100 MG CAP PO ×3 (09:50→21:37)
[2017-12-31] MEDS: FOLIC ACID 1 MG TAB PO (09:50)
[2017-12-31] MEDS: LUBIPROSTONE 24 MCG CAP PO ×2 (09:50→21:00)
[2017-12-31] MEDS: CHOLECALCIFEROL 1,000 UNIT TAB PO (09:50)
[2017-12-31] MEDS: METOPROLOL 25 MG TAB PO ×2 (09:51→21:38)
[2017-12-31] MEDS: PIOGLITAZONE 15 MG TAB PO (09:51)
[2017-12-31] MEDS: ASPIRIN 81 MG TAB PO (09:51)
[2017-12-31] MEDS: TICAGRELOR 90 MG TABLET PO ×2 (10:04→22:07)
[2017-12-31] MEDS ORDERED: SODIUM CHLORIDE 0.9% 1L BAG IV (19:00)
[2017-12-31] MEDS ORDERED: ALBUMIN HUMAN 25% 50 ML IV (19:00)
[2017-12-31] MEDS: ATORVASTATIN 40 MG TAB PO (21:37)
[2017-12-31] MEDS: LIDOCAINE 5% 35 GM OINT TOP (21:37)
[2018-01-01] MEDS: ACCUCHECK AT 2AM (Patients on SS coverage) XX (02:00)
[2018-01-01] MEDS: PANTOPRAZOLE (EC) 40 MG TAB PO ×2 (06:11→18:00)
[2018-01-01] MEDS: LEVOTHYROXINE 50 MCG TAB PO (06:11)
[2018-01-01] MEDS: ACETAMINOPHEN 325 MG TAB PO (06:11)
[2018-01-01 07:11] LABS: ADD MAN DIFF? NO
[2018-01-01 07:21] LABS: WHITE BLOOD COUNT 12.6 10^3/ul (4.8-10.8)
[2018-01-01 07:21] LABS: BASOPHIL # 0.1 10^3/ul (0.0-0.1); BASOPHILS % 0.6 % (0.0-2.0); EOSINOPHILS # 0.3 10^3/ul (0.0-0.5); EOSINOPHILS % 2.5 % (0.0-7.0); HEMATOCRIT 30.2 % (37.0-47.0); HEMOGLOBIN 9.4 g/dl (12.0-16.0); LYMPHOCYTES # 0.6 10^3/ul (0.8-2.9); LYMPHOCYTES % 4.9 % (15.0-51.0); MEAN CORPUSCULAR HEMOGLOBIN 30.3 pg (29.0-33.0); MEAN CORPUSCULAR HGB CONC 31.1 g/dl (32.0-37.0); MEAN CORPUSCULAR VOLUME 97.4 fl (82.0-101.0); MEAN PLATELET VOLUME 10.5 fl (7.4-10.4); MONOCYTE # 0.8 10^3/ul (0.3-0.9); MONOCYTES % 6.1 % (0.0-11.0); NEUTROPHIL # 10.4 10^3/ul (1.6-7.5); NEUTROPHILS % 82.9 % (39.0-77.0); PLATELET COUNT 335 10^3/UL (140-415); RED CELL DISTRIBUTION WIDTH 15.1 % (11.5-14.5)
[2018-01-01] MEDS: Insulin NOVOLOG SS MILD Algorithm (SS with meals and bedtime) SC ×3 (07:25→17:25)
[2018-01-01 07:57] LABS: ANION GAP 14 (8-16); BLOOD UREA NITROGEN 30 mg/dl (7-20); CALCIUM 8.2 mg/dl (8.4-10.2); CARBON DIOXIDE 29 mmol/L (21-31); CHLORIDE 96 mmol/L (97-110); CREATININE 2.78 mg/dl (0.44-1.00); GLUCOSE 83 mg/dl (70-220); POTASSIUM 3.9 mmol/L (3.5-5.1); SODIUM 135 mmol/L (135-144)
[2018-01-01] MEDS: POLYETHYLENE GLYCOL 17 GM PACKET PO (09:00)
[2018-01-01] MEDS: TICAGRELOR 90 MG TABLET PO ×2 (09:00→14:19)
[2018-01-01] MEDS: SUCRALFATE 1 GM TAB PO ×3 (09:33→17:25)
[2018-01-01] MEDS: LUBIPROSTONE 24 MCG CAP PO (09:33)
[2018-01-01] MEDS: ASPIRIN 81 MG TAB PO (09:33)
[2018-01-01] MEDS: CHOLECALCIFEROL 1,000 UNIT TAB PO (09:33)
[2018-01-01] MEDS: GABAPENTIN 100 MG CAP PO ×2 (09:33→13:00)
[2018-01-01] MEDS: PIOGLITAZONE 15 MG TAB PO (09:33)
[2018-01-01] MEDS: FOLIC ACID 1 MG TAB PO (09:34)
[2018-01-01] MEDS: METOPROLOL 25 MG TAB PO (09:35)
[2018-01-01] MEDS: LIDOCAINE 5% 35 GM OINT TOP (09:35)
[2018-01-01] MEDS: DOCUSATE SODIUM 100 MG CAP PO (10:28)
[2018-01-01] MEDS ORDERED: LIDOCAINE 1% (MDV) 20 ML INJ (12:43)
[2018-01-01] MEDS: LACTULOSE ENEMA 1,000 ML BTL PR (17:30)
[2018-01-01] MEDS ORDERED: METOPROLOL 25 MG TAB PO (21:00)
[2018-01-02] MEDS ORDERED: ERGOCALCIFEROL 50,000 UNIT CAP PO (09:00)
[2018-01-02] MEDS ORDERED: LISINOPRIL 5 MG TAB PO (09:00)
== END 2018-01-01 20:30 | DRG 246 ==
LOC: TEL 12-15 18:39 → ICU 12-21 12:25 → TEL 12-28 21:46 → E/R 06:13 → ICU 12-10 22:59 → TEL 07:44
PROC: 0W9D3ZZ Drainage of Pericardial Cavity, Percutaneous Approach (ICD-10-PCS; principal; 2017-12-22 17:00)
PROC: 027034Z Dilation of Coronary Artery, One Artery with Drug-eluting Intraluminal Device, Percutaneous Approach (ICD-10-PCS; 2017-12-22 17:20)
PROC: 5A1D70Z Performance of Urinary Filtration, Intermittent, Less than 6 Hours Per Day (ICD-10-PCS; 2017-12-22 17:20)
PROC: 0W993ZZ Drainage of Right Pleural Cavity, Percutaneous Approach (ICD-10-PCS; 2017-12-22 17:20)
PROC: 0W993ZZ Drainage of Right Pleural Cavity, Percutaneous Approach (ICD-10-PCS; 2017-12-22 17:20)
PROC: 0W9B3ZZ Drainage of Left Pleural Cavity, Percutaneous Approach (ICD-10-PCS; 2017-12-22 17:20)
PROC: 0W9B3ZZ Drainage of Left Pleural Cavity, Percutaneous Approach (ICD-10-PCS; 2017-12-22 17:20)
PROC: 06HM33Z Insertion of Infusion Device into Right Femoral Vein, Percutaneous Approach (ICD-10-PCS; 2017-12-22 17:20)
PROC: 4A023N7 Measurement of Cardiac Sampling and Pressure, Left Heart, Percutaneous Approach (ICD-10-PCS; 2017-12-22 17:20)
PROC: B2111ZZ Fluoroscopy of Multiple Coronary Arteries using Low Osmolar Contrast (ICD-10-PCS; 2017-12-22 17:20)
DX: I25.10 Atherosclerotic heart disease of native coronary artery without angina pectoris (principal); I21.4 Non-ST elevation (NSTEMI) myocardial infarction; N18.6 End stage renal disease; A41.9 Sepsis, unspecified organism; R65.21 Severe sepsis with septic shock; G92 Toxic encephalopathy; J18.9 Pneumonia, unspecified organism; J96.01 Acute respiratory failure with hypoxia; R57.0 Cardiogenic shock; I50.33 Acute on chronic diastolic (congestive) heart failure; J90 Pleural effusion, not elsewhere classified; E87.1 Hypo-osmolality and hyponatremia; E87.2 Acidosis; I31.3 Pericardial effusion (noninflammatory); I13.2 Hypertensive heart and chronic kidney disease with heart failure and with stage 5 chronic kidney disease, or end stage renal disease; I48.0 Paroxysmal atrial fibrillation; Z99.2 Dependence on renal dialysis; E87.5 Hyperkalemia; E11.43 Type 2 diabetes mellitus with diabetic autonomic (poly)neuropathy; K31.84 Gastroparesis; E11.22 Type 2 diabetes mellitus with diabetic chronic kidney disease
CPT/HCPCS: 32555; 33010; 36415; 36600; 71045; 71120; 71275; 76942; 78451; 78452; 80048; 80053; 80061; 80202; 82140; 82533; 82550; 82553; 82803; 82945; 82962; 83036; 83605; 83615; 83735; 84100; 84157; 84443; 84484; 85025; 85610; 85730; 86580; 86706; 87040; 87070; 87081; 87102; 87116; 87340; 88104; 88305; 89051; 90935; 92610; 93005; 93017; 93306; 93308; 93458; 96374; 96375; 96376; 97110; 97116; 97162; 97163; 97530; 99285-25; G0378

== ENCOUNTER 2018-01-01 21:47 | Inpatient (IN) | payer MEDICARE, BC ==
[2018-01-01] MEDS ORDERED: AL HYDROX/MG HYDROX/SIMETH 30 ML CUP PO (22:54)
[2018-01-01] MEDS ORDERED: GLUCAGON 1 MG INJ IM (22:54)
[2018-01-01] MEDS ORDERED: METOCLOPRAMIDE 10 MG INJ IV (22:54)
[2018-01-01] MEDS ORDERED: DOCUSATE SODIUM 100 MG CAP PO (22:54)
[2018-01-01] MEDS ORDERED: MIDODRINE 5 MG TAB PO (22:54)
[2018-01-01] MEDS ORDERED: GLUCOSE GEL 15 GRAM TUBE PO (22:54)
[2018-01-01] MEDS ORDERED: BISACODYL 10 MG SUPP PR (22:54)
[2018-01-01] MEDS ORDERED: ONDANSETRON 4 MG INJ IV (22:54)
[2018-01-01] MEDS ORDERED: DEXTROSE 50% 50 ML SYRINGE IV ×2 (22:54)
[2018-01-01] MEDS ORDERED: BISACODYL (EC) 5 MG TAB PO (22:54)
[2018-01-01] MEDS ORDERED: HEPARIN 1000 UNITS/ML 10 ML INJ CATHETER (22:54)
[2018-01-01] MEDS ORDERED: [UNRECOGNIZED DRUG - REMARK] XX (23:00)
[2018-01-02] MEDS ORDERED: PENDING SANTYL ORDER FOR WOUND CARE XX (01:30)
[2018-01-02 01:35] LABS: ADD UMIC YES; UR ASCORBIC ACID NEGATIVE (NEGATIVE); UR BACTERIA MANY /HPF (NONE SEEN); UR BILIRUBIN (Dip) NEGATIVE (NEGATIVE); UR BLOOD (Dip) 3+ mg/dL (NEGATIVE); UR CLARITY CLOUDY (CLEAR); UR COLOR AMBER (YELLOW); UR GLUCOSE (Dip) NEGATIVE (NEGATIVE); UR KETONES (Dip) NEGATIVE (NEGATIVE); UR LEUKOCYTE ESTERASE (Dip) 3+ Leu/ul (NEGATIVE); UR MUCUS FEW /HPF (NONE SEEN); UR NITRITE (Dip) NEGATIVE (NEGATIVE); UR NONSQUAMOUS EPITHELIAL CELL 1 /HPF (NONE SEEN); UR RBC 77 /HPF (0-5); UR SPECIFIC GRAVITY (Dip) 1.014 (1.003-1.030); UR SQUAMOUS EPITHELIAL CELL MANY /HPF (FEW); UR TOTAL PROTEIN (Dip) 2+ mg/dl (NEGATIVE); UR UROBILINOGEN (Dip) NEGATIVE (NEGATIVE); UR WBC > 182 /HPF (0-5)
[2018-01-02] MEDS: ACCUCHECK AT 2AM (Patients on SS coverage) XX (02:00)
[2018-01-02] MEDS: PANTOPRAZOLE (EC) 40 MG TAB PO ×2 (06:31→17:13)
[2018-01-02] MEDS: LEVOTHYROXINE 50 MCG TAB PO (06:31)
[2018-01-02] MEDS: SUCRALFATE 1 GM TAB PO ×4 (07:05→22:00)
[2018-01-02] MEDS: Insulin NOVOLOG SS MILD Algorithm (SS with meals and bedtime) SC ×4 (07:05→22:00)
[2018-01-02 08:09] LABS: WHITE BLOOD COUNT 10.6 10^3/ul (4.8-10.8)
[2018-01-02 08:09] LABS: ABNORMAL IP MESSAGE 1; ADD MAN DIFF? NO; BASOPHIL # 0.1 10^3/ul (0.0-0.1); BASOPHILS % 1.1 % (0.0-2.0); EOSINOPHILS # 0.3 10^3/ul (0.0-0.5); EOSINOPHILS % 2.6 % (0.0-7.0); HEMATOCRIT 33.3 % (37.0-47.0); HEMOGLOBIN 10.2 g/dl (12.0-16.0); LYMPHOCYTES # 0.5 10^3/ul (0.8-2.9); LYMPHOCYTES % 4.6 % (15.0-51.0); MEAN CORPUSCULAR HEMOGLOBIN 30.7 pg (29.0-33.0); MEAN CORPUSCULAR HGB CONC 30.6 g/dl (32.0-37.0); MEAN CORPUSCULAR VOLUME 100.3 fl (82.0-101.0); MEAN PLATELET VOLUME 10.3 fl (7.4-10.4); MONOCYTE # 0.8 10^3/ul (0.3-0.9); MONOCYTES % 7.1 % (0.0-11.0); NEUTROPHIL # 8.6 10^3/ul (1.6-7.5); NEUTROPHILS % 81.4 % (39.0-77.0); PLATELET COUNT 424 10^3/UL (140-415); RED BLOOD COUNT 3.32 10^6/ul (4.20-5.40); RED CELL DISTRIBUTION WIDTH 15.1 % (11.5-14.5)
[2018-01-02 08:20] LABS: POSITIVE DIFF @See below
[2018-01-02 08:30] LABS: ALANINE AMINOTRANSFERASE 36 IU/L (13-69); ALBUMIN 2.9 g/dl (3.3-4.9); ALBUMIN/GLOBULIN RATIO 1.16; ALKALINE PHOSPHATASE 128 IU/L (42-121); ANION GAP 11 (8-16); ASPARTATE AMINO TRANSFERASE 18 IU/L (15-46); BILIRUBIN,INDIRECT 0.2 mg/dl (0-1.1); BILIRUBIN,TOTAL 0.2 mg/dl (0.2-1.3); BLOOD UREA NITROGEN 18 mg/dl (7-20); CARBON DIOXIDE 32 mmol/L (21-31); CHLORIDE 101 mmol/L (97-110); CREATININE 1.98 mg/dl (0.44-1.00); GLUCOSE 84 mg/dl (70-220); POTASSIUM 3.8 mmol/L (3.5-5.1); SODIUM 140 mmol/L (135-144); TOTAL PROTEIN 5.4 g/dl (6.1-8.1)
[2018-01-02] MEDS: TICAGRELOR 90 MG TABLET PO ×2 (08:35→22:03)
[2018-01-02] MEDS: LUBIPROSTONE 24 MCG CAP PO ×2 (08:35→21:00)
[2018-01-02] MEDS: FOLIC ACID 1 MG TAB PO (08:35)
[2018-01-02] MEDS: ASPIRIN 81 MG TAB PO (08:36)
[2018-01-02] MEDS: METOPROLOL 25 MG TAB PO ×2 (08:38→22:01)
[2018-01-02] MEDS: POLYETHYLENE GLYCOL 17 GM PACKET PO (08:39)
[2018-01-02] MEDS: GABAPENTIN 100 MG CAP PO ×3 (08:39→22:01)
[2018-01-02] MEDS: BISACODYL 10 MG SUPP PR (09:00)
[2018-01-02] MEDS: DOCUSATE SODIUM 100 MG CAP PO (12:23)
[2018-01-02] MEDS: ERGOCALCIFEROL 50,000 UNIT CAP PO (12:23)
[2018-01-02] MEDS: PIOGLITAZONE 15 MG TAB PO (12:23)
[2018-01-02] MEDS: LEVOFLOXACIN 500 MG TAB PO (12:24)
[2018-01-02] MEDS: ACETIC ACID 0.25% IRR 1,000 ML BTL IRR (17:12)
[2018-01-02] MEDS: ATORVASTATIN 40 MG TAB PO (22:00)
[2018-01-03] MEDS: ACETAMINOPHEN 325 MG TAB PO (01:25)
[2018-01-03] MEDS: ACCUCHECK AT 2AM (Patients on SS coverage) XX (02:15)
[2018-01-03] MEDS ORDERED: LEVOFLOXACIN 250 MG TAB PO (06:00)
[2018-01-03] MEDS: LEVOTHYROXINE 50 MCG TAB PO (06:23)
[2018-01-03] MEDS: PANTOPRAZOLE (EC) 40 MG TAB PO ×2 (06:23→17:53)
[2018-01-03] MEDS: Insulin NOVOLOG SS MILD Algorithm (SS with meals and bedtime) SC ×4 (07:05→21:00)
[2018-01-03] MEDS: SUCRALFATE 1 GM TAB PO ×4 (07:05→20:58)
[2018-01-03] MEDS: PIOGLITAZONE 15 MG TAB PO (08:51)
[2018-01-03] MEDS: ASPIRIN 81 MG TAB PO (08:51)
[2018-01-03] MEDS: TICAGRELOR 90 MG TABLET PO ×2 (08:51→20:49)
[2018-01-03] MEDS: FOLIC ACID 1 MG TAB PO (08:52)
[2018-01-03] MEDS: GABAPENTIN 100 MG CAP PO ×3 (08:52→20:50)
[2018-01-03] MEDS: METOPROLOL 25 MG TAB PO ×2 (08:53→20:54)
[2018-01-03] MEDS: LUBIPROSTONE 24 MCG CAP PO ×2 (08:53→20:49)
[2018-01-03] MEDS: POLYETHYLENE GLYCOL 17 GM PACKET PO (09:00)
[2018-01-03] MEDS: BISACODYL 10 MG SUPP PR (09:00)
[2018-01-03] MEDS: DOCUSATE SODIUM 100 MG CAP PO (09:00)
[2018-01-03] MEDS: ATORVASTATIN 40 MG TAB PO (20:50)
[2018-01-04] MEDS: ACCUCHECK AT 2AM (Patients on SS coverage) XX (02:00)
[2018-01-04] MEDS: PANTOPRAZOLE (EC) 40 MG TAB PO ×2 (06:10→18:44)
[2018-01-04] MEDS: LEVOTHYROXINE 50 MCG TAB PO (06:11)
[2018-01-04] MEDS: Insulin NOVOLOG SS MILD Algorithm (SS with meals and bedtime) SC ×4 (07:05→21:00)
[2018-01-04] MEDS: POLYETHYLENE GLYCOL 17 GM PACKET PO (09:00)
[2018-01-04] MEDS: LUBIPROSTONE 24 MCG CAP PO ×2 (09:00→20:34)
[2018-01-04] MEDS: PIOGLITAZONE 15 MG TAB PO (09:11)
[2018-01-04] MEDS: ASPIRIN 81 MG TAB PO (09:11)
[2018-01-04] MEDS: DOCUSATE SODIUM 100 MG CAP PO (09:12)
[2018-01-04] MEDS: GABAPENTIN 100 MG CAP PO ×3 (09:12→20:34)
[2018-01-04] MEDS: METOPROLOL 25 MG TAB PO ×2 (09:12→20:42)
[2018-01-04] MEDS: FOLIC ACID 1 MG TAB PO (09:12)
[2018-01-04] MEDS: SUCRALFATE 1 GM TAB PO ×4 (09:13→20:35)
[2018-01-04] MEDS: TICAGRELOR 90 MG TABLET PO ×2 (09:17→20:35)
[2018-01-04] MEDS: ALBUMIN HUMAN 25% 50 ML IV ×2 (17:10→17:45)
[2018-01-04 18:57] LABS: HEPATITIS B SURFACE ANTIGEN NEGATIVE (NEGATIVE)
[2018-01-04] MEDS: ATORVASTATIN 40 MG TAB PO (20:38)
[2018-01-05] MEDS: ACCUCHECK AT 2AM (Patients on SS coverage) XX (02:00)
[2018-01-05] MEDS: PANTOPRAZOLE (EC) 40 MG TAB PO ×2 (06:22→17:51)
[2018-01-05] MEDS: LEVOTHYROXINE 50 MCG TAB PO (06:22)
[2018-01-05] MEDS: SUCRALFATE 1 GM TAB PO ×4 (07:05→21:00)
[2018-01-05] MEDS: Insulin NOVOLOG SS MILD Algorithm (SS with meals and bedtime) SC ×4 (08:45→21:00)
[2018-01-05] MEDS: POLYETHYLENE GLYCOL 17 GM PACKET PO (09:00)
[2018-01-05] MEDS: PIOGLITAZONE 15 MG TAB PO (10:34)
[2018-01-05] MEDS: TICAGRELOR 90 MG TABLET PO ×2 (10:34→21:26)
[2018-01-05] MEDS: LUBIPROSTONE 24 MCG CAP PO (10:35)
[2018-01-05] MEDS: FOLIC ACID 1 MG TAB PO (10:35)
[2018-01-05] MEDS: METOPROLOL 25 MG TAB PO ×2 (10:35→21:18)
[2018-01-05] MEDS: DOCUSATE SODIUM 100 MG CAP PO (10:35)
[2018-01-05] MEDS: ASPIRIN 81 MG TAB PO (10:36)
[2018-01-05] MEDS: LISINOPRIL 5 MG TAB PO (10:36)
[2018-01-05] MEDS: GABAPENTIN 100 MG CAP PO ×3 (10:36→21:17)
[2018-01-05] MEDS ORDERED: SODIUM CHLORIDE 0.9% 1L BAG IV (19:00)
[2018-01-05] MEDS ORDERED: ALBUMIN HUMAN 25% 50 ML IV (19:00)
[2018-01-05] MEDS: ATORVASTATIN 40 MG TAB PO (21:17)
[2018-01-05] MEDS: ACETAMINOPHEN 325 MG TAB PO (23:45)
[2018-01-06] MEDS: ACCUCHECK AT 2AM (Patients on SS coverage) XX (02:00)
[2018-01-06] MEDS: LEVOTHYROXINE 50 MCG TAB PO (07:03)
[2018-01-06] MEDS: PANTOPRAZOLE (EC) 40 MG TAB PO ×3 (07:03→20:50)
[2018-01-06] MEDS: SUCRALFATE 1 GM TAB PO ×5 (07:04→20:54)
[2018-01-06] MEDS: Insulin NOVOLOG SS MILD Algorithm (SS with meals and bedtime) SC ×4 (07:05→21:00)
[2018-01-06 07:15] LABS: ANION GAP 15 (8-16); BLOOD UREA NITROGEN 44 mg/dl (7-20); CALCIUM 8.8 mg/dl (8.4-10.2); CARBON DIOXIDE 27 mmol/L (21-31); CHLORIDE 96 mmol/L (97-110); CREATININE 3.75 mg/dl (0.44-1.00); GLUCOSE 116 mg/dl (70-220); POTASSIUM 4.2 mmol/L (3.5-5.1); SODIUM 134 mmol/L (135-144)
[2018-01-06] MEDS: FOLIC ACID 1 MG TAB PO (08:29)
[2018-01-06] MEDS: GABAPENTIN 100 MG CAP PO ×3 (08:29→20:50)
[2018-01-06] MEDS: ASPIRIN 81 MG TAB PO (08:29)
[2018-01-06] MEDS: TICAGRELOR 90 MG TABLET PO ×2 (08:32→20:49)
[2018-01-06] MEDS: PIOGLITAZONE 15 MG TAB PO (08:32)
[2018-01-06] MEDS: LISINOPRIL 5 MG TAB PO (09:00)
[2018-01-06] MEDS: METOPROLOL 25 MG TAB PO ×2 (09:00→20:51)
[2018-01-06] MEDS: POLYETHYLENE GLYCOL 17 GM PACKET PO (09:00)
[2018-01-06] MEDS: ACETAMINOPHEN 325 MG TAB PO (20:49)
[2018-01-06] MEDS: ATORVASTATIN 40 MG TAB PO (20:50)
[2018-01-07] MEDS: ACCUCHECK AT 2AM (Patients on SS coverage) XX (02:00)
[2018-01-07] MEDS: PANTOPRAZOLE (EC) 40 MG TAB PO ×2 (06:13→17:40)
[2018-01-07] MEDS: LEVOTHYROXINE 50 MCG TAB PO (06:13)
[2018-01-07] MEDS: SUCRALFATE 1 GM TAB PO ×5 (07:05→20:37)
[2018-01-07] MEDS: Insulin NOVOLOG SS MILD Algorithm (SS with meals and bedtime) SC ×4 (07:05→21:00)
[2018-01-07] MEDS: POLYETHYLENE GLYCOL 17 GM PACKET PO (09:00)
[2018-01-07] MEDS: ASPIRIN 81 MG TAB PO (10:01)
[2018-01-07] MEDS: GABAPENTIN 100 MG CAP PO ×3 (10:01→20:37)
[2018-01-07] MEDS: PIOGLITAZONE 15 MG TAB PO (10:01)
[2018-01-07] MEDS: FOLIC ACID 1 MG TAB PO (10:02)
[2018-01-07] MEDS: LISINOPRIL 5 MG TAB PO (10:03)
[2018-01-07] MEDS: METOPROLOL 25 MG TAB PO ×2 (10:04→20:46)
[2018-01-07] MEDS: TICAGRELOR 90 MG TABLET PO ×2 (12:18→20:37)
[2018-01-07] MEDS ORDERED: SODIUM CHLORIDE 0.9% 1L BAG IV (19:00)
[2018-01-07] MEDS ORDERED: ALBUMIN HUMAN 25% 50 ML IV (19:00)
[2018-01-07] MEDS: ACETAMINOPHEN 325 MG TAB PO (20:36)
[2018-01-07] MEDS: ATORVASTATIN 40 MG TAB PO (20:37)
[2018-01-08] MEDS: ACCUCHECK AT 2AM (Patients on SS coverage) XX (02:00)
[2018-01-08] MEDS: ACETAMINOPHEN 325 MG TAB PO ×2 (02:17→23:41)
[2018-01-08] MEDS: HYDROCODONE/APAP (5/325) TAB PO (04:54)
[2018-01-08] MEDS: LEVOTHYROXINE 50 MCG TAB PO (06:35)
[2018-01-08] MEDS: PANTOPRAZOLE (EC) 40 MG TAB PO ×2 (06:35→18:17)
[2018-01-08] MEDS: SUCRALFATE 1 GM TAB PO ×4 (07:05→23:34)
[2018-01-08] MEDS: Insulin NOVOLOG SS MILD Algorithm (SS with meals and bedtime) SC ×4 (07:05→23:35)
[2018-01-08 07:16] LABS: ANION GAP 17 (8-16); BLOOD UREA NITROGEN 36 mg/dl (7-20); CALCIUM 8.4 mg/dl (8.4-10.2); CARBON DIOXIDE 23 mmol/L (21-31); CHLORIDE 98 mmol/L (97-110); CREATININE 3.14 mg/dl (0.44-1.00); GLUCOSE 133 mg/dl (70-220); POTASSIUM 4.6 mmol/L (3.5-5.1); SODIUM 133 mmol/L (135-144)
[2018-01-08] MEDS: POLYETHYLENE GLYCOL 17 GM PACKET PO (08:54)
[2018-01-08] MEDS: FOLIC ACID 1 MG TAB PO (08:54)
[2018-01-08] MEDS: GABAPENTIN 100 MG CAP PO ×3 (08:54→23:34)
[2018-01-08] MEDS: ASPIRIN 81 MG TAB PO (08:55)
[2018-01-08] MEDS: LISINOPRIL 5 MG TAB PO (08:55)
[2018-01-08] MEDS: METOPROLOL 25 MG TAB PO ×2 (08:56→23:42)
[2018-01-08] MEDS: PIOGLITAZONE 15 MG TAB PO (08:57)
[2018-01-08] MEDS: TICAGRELOR 90 MG TABLET PO ×2 (08:58→23:44)
[2018-01-08] MEDS: ALBUMIN HUMAN 25% 50 ML IV (20:57)
[2018-01-08] MEDS: ATORVASTATIN 40 MG TAB PO ×2 (23:34→23:42)
[2018-01-08] MEDS: CARBAMIDE PEROXIDE 6.5% 15ML OTIC BOTH EARS (23:34)
[2018-01-09] MEDS: ACCUCHECK AT 2AM (Patients on SS coverage) XX (02:00)
[2018-01-09] MEDS: PANTOPRAZOLE (EC) 40 MG TAB PO ×2 (06:44→18:19)
[2018-01-09] MEDS: SUCRALFATE 1 GM TAB PO ×4 (06:44→21:00)
[2018-01-09] MEDS: LEVOTHYROXINE 50 MCG TAB PO (06:44)
[2018-01-09] MEDS: Insulin NOVOLOG SS MILD Algorithm (SS with meals and bedtime) SC ×4 (07:05→21:00)
[2018-01-09] MEDS: POLYETHYLENE GLYCOL 17 GM PACKET PO (09:00)
[2018-01-09] MEDS: FOLIC ACID 1 MG TAB PO (10:09)
[2018-01-09] MEDS: PIOGLITAZONE 15 MG TAB PO (10:09)
[2018-01-09] MEDS: GABAPENTIN 100 MG CAP PO ×3 (10:10→21:19)
[2018-01-09] MEDS: ASPIRIN 81 MG TAB PO (10:10)
[2018-01-09] MEDS: TICAGRELOR 90 MG TABLET PO ×2 (10:11→21:30)
[2018-01-09] MEDS: LISINOPRIL 5 MG TAB PO (10:12)
[2018-01-09] MEDS: METOPROLOL 25 MG TAB PO ×2 (10:12→21:26)
[2018-01-09] MEDS: ERGOCALCIFEROL 50,000 UNIT CAP PO (13:26)
[2018-01-09] MEDS: ATORVASTATIN 40 MG TAB PO (21:19)
[2018-01-09] MEDS: CARBAMIDE PEROXIDE 6.5% 15ML OTIC BOTH EARS (21:19)
[2018-01-10] MEDS: ACCUCHECK AT 2AM (Patients on SS coverage) XX (02:00)
[2018-01-10] MEDS: PANTOPRAZOLE (EC) 40 MG TAB PO ×2 (07:00→17:47)
[2018-01-10] MEDS: LEVOTHYROXINE 50 MCG TAB PO (07:00)
[2018-01-10] MEDS: SUCRALFATE 1 GM TAB PO (07:01)
[2018-01-10] MEDS: Insulin NOVOLOG SS MILD Algorithm (SS with meals and bedtime) SC ×4 (07:05→21:00)
[2018-01-10] MEDS: PIOGLITAZONE 15 MG TAB PO (08:54)
[2018-01-10] MEDS: TICAGRELOR 90 MG TABLET PO ×2 (08:55→21:27)
[2018-01-10] MEDS: GABAPENTIN 100 MG CAP PO ×3 (08:56→21:10)
[2018-01-10] MEDS: ASPIRIN 81 MG TAB PO (08:56)
[2018-01-10] MEDS: LISINOPRIL 5 MG TAB PO (08:56)
[2018-01-10] MEDS: FOLIC ACID 1 MG TAB PO (08:56)
[2018-01-10] MEDS: METOPROLOL 25 MG TAB PO ×2 (08:57→21:09)
[2018-01-10] MEDS: DOCUSATE SODIUM 100 MG CAP PO ×2 (08:57→21:09)
[2018-01-10] MEDS: LUBIPROSTONE 24 MCG CAP PO (08:57)
[2018-01-10] MEDS: POLYETHYLENE GLYCOL 17 GM PACKET PO (08:59)
[2018-01-10] MEDS ORDERED: ALBUMIN HUMAN 25% 50 ML IV (16:00)
[2018-01-10] MEDS: ATORVASTATIN 40 MG TAB PO (21:09)
[2018-01-10] MEDS: CARBAMIDE PEROXIDE 6.5% 15ML OTIC BOTH EARS (21:10)
[2018-01-10] MEDS: ACETAMINOPHEN 325 MG TAB PO (21:10)
[2018-01-11] MEDS: ACCUCHECK AT 2AM (Patients on SS coverage) XX (00:12)
[2018-01-11] MEDS: ACETAMINOPHEN 325 MG TAB PO ×2 (03:46→21:16)
[2018-01-11] MEDS: PANTOPRAZOLE (EC) 40 MG TAB PO ×2 (06:09→21:17)
[2018-01-11] MEDS: LEVOTHYROXINE 50 MCG TAB PO (06:34)
[2018-01-11] MEDS: HYDROCODONE/APAP (5/325) TAB PO (06:36)
[2018-01-11] MEDS: Insulin NOVOLOG SS MILD Algorithm (SS with meals and bedtime) SC ×4 (07:05→21:23)
[2018-01-11] MEDS: ASPIRIN 81 MG TAB PO (08:38)
[2018-01-11] MEDS: FOLIC ACID 1 MG TAB PO (08:38)
[2018-01-11] MEDS: PIOGLITAZONE 15 MG TAB PO (08:38)
[2018-01-11] MEDS: DOCUSATE SODIUM 100 MG CAP PO ×2 (08:38→21:00)
[2018-01-11] MEDS: GABAPENTIN 100 MG CAP PO ×3 (08:38→20:59)
[2018-01-11] MEDS: TICAGRELOR 90 MG TABLET PO ×2 (08:39→21:22)
[2018-01-11] MEDS: METOPROLOL 25 MG TAB PO ×2 (08:41→21:00)
[2018-01-11] MEDS: POLYETHYLENE GLYCOL 17 GM PACKET PO (08:42)
[2018-01-11] MEDS: LISINOPRIL 5 MG TAB PO (08:42)
[2018-01-11] MEDS: ATORVASTATIN 40 MG TAB PO (21:00)
[2018-01-11] MEDS: CARBAMIDE PEROXIDE 6.5% 15ML OTIC BOTH EARS (21:01)
[2018-01-12] MEDS: HYDROCODONE/APAP (5/325) TAB PO ×2 (00:49→23:37)
[2018-01-12] MEDS: ACCUCHECK AT 2AM (Patients on SS coverage) XX (01:50)
[2018-01-12] MEDS: PANTOPRAZOLE (EC) 40 MG TAB PO ×2 (06:10→17:04)
[2018-01-12] MEDS: LEVOTHYROXINE 50 MCG TAB PO (06:10)
[2018-01-12] MEDS: Insulin NOVOLOG SS MILD Algorithm (SS with meals and bedtime) SC ×4 (07:05→21:00)
[2018-01-12] MEDS: POLYETHYLENE GLYCOL 17 GM PACKET PO (09:00)
[2018-01-12] MEDS: DOCUSATE SODIUM 100 MG CAP PO ×2 (09:11→21:29)
[2018-01-12] MEDS: FOLIC ACID 1 MG TAB PO (09:11)
[2018-01-12] MEDS: GABAPENTIN 100 MG CAP PO ×3 (09:11→21:29)
[2018-01-12] MEDS: PIOGLITAZONE 15 MG TAB PO (09:11)
[2018-01-12] MEDS: ASPIRIN 81 MG TAB PO (09:11)
[2018-01-12] MEDS: METOPROLOL 25 MG TAB PO ×3 (09:12→21:00)
[2018-01-12] MEDS: LISINOPRIL 5 MG TAB PO (09:12)
[2018-01-12] MEDS: TICAGRELOR 90 MG TABLET PO ×2 (09:13→21:33)
[2018-01-12] MEDS: ATORVASTATIN 40 MG TAB PO (21:29)
[2018-01-12] MEDS: ACETAMINOPHEN 325 MG TAB PO (22:28)
[2018-01-13] MEDS: ACCUCHECK AT 2AM (Patients on SS coverage) XX (01:46)
[2018-01-13] MEDS: LEVOTHYROXINE 50 MCG TAB PO (06:10)
[2018-01-13] MEDS: PANTOPRAZOLE (EC) 40 MG TAB PO ×2 (06:10→17:31)
[2018-01-13] MEDS: ACETAMINOPHEN 325 MG TAB PO ×2 (06:10→22:20)
[2018-01-13] MEDS: Insulin NOVOLOG SS MILD Algorithm (SS with meals and bedtime) SC ×4 (07:05→23:50)
[2018-01-13] MEDS: FOLIC ACID 1 MG TAB PO (09:13)
[2018-01-13] MEDS: ASPIRIN 81 MG TAB PO (09:13)
[2018-01-13] MEDS: PIOGLITAZONE 15 MG TAB PO (09:13)
[2018-01-13] MEDS: LISINOPRIL 5 MG TAB PO (09:13)
[2018-01-13] MEDS: DOCUSATE SODIUM 100 MG CAP PO ×2 (09:14→20:38)
[2018-01-13] MEDS: GABAPENTIN 100 MG CAP PO ×3 (09:14→20:38)
[2018-01-13] MEDS: POLYETHYLENE GLYCOL 17 GM PACKET PO (09:14)
[2018-01-13] MEDS: METOPROLOL 25 MG TAB PO ×2 (09:14→20:40)
[2018-01-13] MEDS: TICAGRELOR 90 MG TABLET PO ×2 (09:15→20:44)
[2018-01-13] MEDS ORDERED: SODIUM CHLORIDE 0.9% 1L BAG IV (10:30)
[2018-01-13] MEDS: ATORVASTATIN 40 MG TAB PO (20:38)
[2018-01-13] MEDS: HYDROCODONE/APAP (5/325) TAB PO (23:45)
[2018-01-14] MEDS: ACCUCHECK AT 2AM (Patients on SS coverage) XX (02:00)
[2018-01-14] MEDS: PANTOPRAZOLE (EC) 40 MG TAB PO ×2 (06:25→17:54)
[2018-01-14] MEDS: LEVOTHYROXINE 50 MCG TAB PO (06:25)
[2018-01-14] MEDS: PIOGLITAZONE 15 MG TAB PO (08:34)
[2018-01-14] MEDS: FOLIC ACID 1 MG TAB PO (08:37)
[2018-01-14] MEDS: TICAGRELOR 90 MG TABLET PO ×2 (08:37→20:54)
[2018-01-14] MEDS: GABAPENTIN 100 MG CAP PO ×3 (08:38→20:53)
[2018-01-14] MEDS: LISINOPRIL 5 MG TAB PO (08:38)
[2018-01-14] MEDS: ASPIRIN 81 MG TAB PO (08:38)
[2018-01-14] MEDS: METOPROLOL 25 MG TAB PO ×2 (08:39→20:55)
[2018-01-14] MEDS: DOCUSATE SODIUM 100 MG CAP PO ×2 (08:39→20:55)
[2018-01-14] MEDS: Insulin NOVOLOG SS MILD Algorithm (SS with meals and bedtime) SC ×4 (08:40→20:55)
[2018-01-14] MEDS: HYDROCODONE/APAP (5/325) TAB PO ×3 (08:40→23:37)
[2018-01-14] MEDS: POLYETHYLENE GLYCOL 17 GM PACKET PO (08:41)
[2018-01-14] MEDS ORDERED: ALBUMIN HUMAN 25% 50 ML IV (17:00)
[2018-01-14] MEDS ORDERED: SODIUM CHLORIDE 0.9% 1L BAG IV (17:00)
[2018-01-14] MEDS: ATORVASTATIN 40 MG TAB PO (20:53)
[2018-01-14] MEDS: ACETAMINOPHEN 325 MG TAB PO (20:55)
[2018-01-15] MEDS: ACCUCHECK AT 2AM (Patients on SS coverage) XX (02:00)
[2018-01-15] MEDS: HYDROCODONE/APAP (5/325) TAB PO ×3 (03:33→21:39)
[2018-01-15] MEDS: PANTOPRAZOLE (EC) 40 MG TAB PO ×2 (06:22→19:12)
[2018-01-15] MEDS: LEVOTHYROXINE 50 MCG TAB PO (06:22)
[2018-01-15 06:59] LABS: ANION GAP 15 (8-16); BLOOD UREA NITROGEN 25 mg/dl (7-20); CALCIUM 8.7 mg/dl (8.4-10.2); CARBON DIOXIDE 28 mmol/L (21-31); CHLORIDE 100 mmol/L (97-110); GLUCOSE 80 mg/dl (70-220); SODIUM 139 mmol/L (135-144)
[2018-01-15] MEDS: Insulin NOVOLOG SS MILD Algorithm (SS with meals and bedtime) SC ×4 (07:05→21:00)
[2018-01-15] MEDS: POLYETHYLENE GLYCOL 17 GM PACKET PO (09:21)
[2018-01-15] MEDS: DOCUSATE SODIUM 100 MG CAP PO ×2 (09:22→21:38)
[2018-01-15] MEDS: PIOGLITAZONE 15 MG TAB PO (09:22)
[2018-01-15] MEDS: FOLIC ACID 1 MG TAB PO (09:22)
[2018-01-15] MEDS: GABAPENTIN 100 MG CAP PO ×3 (09:22→21:40)
[2018-01-15] MEDS: METOPROLOL 25 MG TAB PO ×2 (09:23→21:39)
[2018-01-15] MEDS: ASPIRIN 81 MG TAB PO (09:23)
[2018-01-15] MEDS: LISINOPRIL 5 MG TAB PO (09:24)
[2018-01-15] MEDS: TICAGRELOR 90 MG TABLET PO ×2 (09:25→21:44)
[2018-01-15] MEDS: ATORVASTATIN 40 MG TAB PO (21:39)
[2018-01-16] MEDS: ACCUCHECK AT 2AM (Patients on SS coverage) XX (02:00)
[2018-01-16] MEDS: HYDROCODONE/APAP (5/325) TAB PO ×2 (02:40→23:26)
[2018-01-16] MEDS: LEVOTHYROXINE 50 MCG TAB PO (06:44)
[2018-01-16] MEDS: PANTOPRAZOLE (EC) 40 MG TAB PO ×2 (06:44→17:57)
[2018-01-16] MEDS: Insulin NOVOLOG SS MILD Algorithm (SS with meals and bedtime) SC ×4 (07:05→21:00)
[2018-01-16] MEDS: POLYETHYLENE GLYCOL 17 GM PACKET PO (09:00)
[2018-01-16] MEDS: PIOGLITAZONE 15 MG TAB PO (09:02)
[2018-01-16] MEDS: TICAGRELOR 90 MG TABLET PO ×2 (09:03→21:41)
[2018-01-16] MEDS: FOLIC ACID 1 MG TAB PO (09:03)
[2018-01-16] MEDS: ERGOCALCIFEROL 50,000 UNIT CAP PO (09:05)
[2018-01-16] MEDS: METOPROLOL 25 MG TAB PO ×2 (09:05→21:37)
[2018-01-16] MEDS: LISINOPRIL 5 MG TAB PO (09:05)
[2018-01-16] MEDS: GABAPENTIN 100 MG CAP PO ×3 (09:05→21:37)
[2018-01-16] MEDS: DOCUSATE SODIUM 100 MG CAP PO ×2 (09:05→21:37)
[2018-01-16] MEDS: ASPIRIN 81 MG TAB PO (09:06)
[2018-01-16] MEDS: ATORVASTATIN 40 MG TAB PO (21:37)
[2018-01-17] MEDS: ACCUCHECK AT 2AM (Patients on SS coverage) XX (02:00)
[2018-01-17] MEDS: HYDROCODONE/APAP (5/325) TAB PO ×3 (02:07→23:08)
[2018-01-17] MEDS: LEVOTHYROXINE 50 MCG TAB PO (06:09)
[2018-01-17] MEDS: PANTOPRAZOLE (EC) 40 MG TAB PO ×2 (06:09→17:22)
[2018-01-17] MEDS: Insulin NOVOLOG SS MILD Algorithm (SS with meals and bedtime) SC ×4 (07:05→21:00)
[2018-01-17] MEDS: TICAGRELOR 90 MG TABLET PO ×2 (08:32→20:50)
[2018-01-17] MEDS: GABAPENTIN 100 MG CAP PO ×3 (08:32→20:49)
[2018-01-17] MEDS: METOPROLOL 25 MG TAB PO ×2 (08:34→20:49)
[2018-01-17] MEDS: DOCUSATE SODIUM 100 MG CAP PO ×2 (08:34→20:49)
[2018-01-17] MEDS: ASPIRIN 81 MG TAB PO (08:35)
[2018-01-17] MEDS: FOLIC ACID 1 MG TAB PO (08:35)
[2018-01-17] MEDS: PIOGLITAZONE 15 MG TAB PO (08:38)
[2018-01-17] MEDS: LISINOPRIL 5 MG TAB PO (08:38)
[2018-01-17] MEDS: POLYETHYLENE GLYCOL 17 GM PACKET PO (08:40)
[2018-01-17] MEDS: ATORVASTATIN 40 MG TAB PO (20:49)
[2018-01-18] MEDS: ACCUCHECK AT 2AM (Patients on SS coverage) XX (02:00)
[2018-01-18] MEDS: HYDROCODONE/APAP (5/325) TAB PO ×3 (03:01→17:41)
[2018-01-18] MEDS: PANTOPRAZOLE (EC) 40 MG TAB PO ×2 (05:25→17:41)
[2018-01-18] MEDS: LEVOTHYROXINE 50 MCG TAB PO (05:25)
[2018-01-18] MEDS: ACETAMINOPHEN 325 MG TAB PO (05:25)
[2018-01-18] MEDS: Insulin NOVOLOG SS MILD Algorithm (SS with meals and bedtime) SC ×4 (07:05→21:00)
[2018-01-18 07:13] LABS: ADD MAN DIFF? NO
[2018-01-18 07:21] LABS: WHITE BLOOD COUNT 5.4 10^3/ul (4.8-10.8)
[2018-01-18 07:21] LABS: BASOPHIL # 0.1 10^3/ul (0.0-0.1); BASOPHILS % 1.5 % (0.0-2.0); EOSINOPHILS # 0.3 10^3/ul (0.0-0.5); EOSINOPHILS % 6.1 % (0.0-7.0); HEMATOCRIT 29.4 % (37.0-47.0); HEMOGLOBIN 8.8 g/dl (12.0-16.0); LYMPHOCYTES # 0.6 10^3/ul (0.8-2.9); LYMPHOCYTES % 11.6 % (15.0-51.0); MEAN CORPUSCULAR HEMOGLOBIN 29.7 pg (29.0-33.0); MEAN CORPUSCULAR HGB CONC 29.9 g/dl (32.0-37.0); MEAN CORPUSCULAR VOLUME 99.3 fl (82.0-101.0); MEAN PLATELET VOLUME 10.9 fl (7.4-10.4); MONOCYTE # 0.5 10^3/ul (0.3-0.9); MONOCYTES % 9.6 % (0.0-11.0); NEUTROPHIL # 3.8 10^3/ul (1.6-7.5); NEUTROPHILS % 70.1 % (39.0-77.0); PLATELET COUNT 249 10^3/UL (140-415); RED BLOOD COUNT 2.96 10^6/ul (4.20-5.40); RED CELL DISTRIBUTION WIDTH 16.3 % (11.5-14.5)
[2018-01-18 07:45] LABS: ALANINE AMINOTRANSFERASE 45 IU/L (13-69); ALBUMIN 3.1 g/dl (3.3-4.9); ALKALINE PHOSPHATASE 241 IU/L (42-121); ANION GAP 15 (8-16); ASPARTATE AMINO TRANSFERASE 72 IU/L (15-46); BILIRUBIN,INDIRECT 0.2 mg/dl (0-1.1); BILIRUBIN,TOTAL 0.2 mg/dl (0.2-1.3); BLOOD UREA NITROGEN 30 mg/dl (7-20); CALCIUM 8.7 mg/dl (8.4-10.2); CARBON DIOXIDE 30 mmol/L (21-31); CHLORIDE 96 mmol/L (97-110); GLUCOSE 80 mg/dl (70-220); POTASSIUM 4.1 mmol/L (3.5-5.1); SODIUM 137 mmol/L (135-144); TOTAL PROTEIN 5.8 g/dl (6.1-8.1)
[2018-01-18 07:46] LABS: ALBUMIN/GLOBULIN RATIO 1.14
[2018-01-18] MEDS: POLYETHYLENE GLYCOL 17 GM PACKET PO (09:00)
[2018-01-18] MEDS: ASPIRIN 81 MG TAB PO (09:26)
[2018-01-18] MEDS: LISINOPRIL 5 MG TAB PO (09:26)
[2018-01-18] MEDS: PIOGLITAZONE 15 MG TAB PO (09:27)
[2018-01-18] MEDS: METOPROLOL 25 MG TAB PO ×2 (09:27→21:00)
[2018-01-18] MEDS: GABAPENTIN 100 MG CAP PO ×3 (09:27→23:20)
[2018-01-18] MEDS: FOLIC ACID 1 MG TAB PO (09:28)
[2018-01-18] MEDS: TICAGRELOR 90 MG TABLET PO ×2 (09:29→23:22)
[2018-01-18] MEDS: DOCUSATE SODIUM 100 MG CAP PO ×2 (09:33→23:19)
[2018-01-18] MEDS: ALBUMIN HUMAN 25% 50 ML IV (21:33)
[2018-01-18] MEDS: ATORVASTATIN 40 MG TAB PO (23:20)
[2018-01-19] MEDS: HYDROCODONE/APAP (5/325) TAB PO (01:59)
[2018-01-19] MEDS: ACCUCHECK AT 2AM (Patients on SS coverage) XX (02:00)
[2018-01-19] MEDS: PANTOPRAZOLE (EC) 40 MG TAB PO ×2 (06:07→17:28)
[2018-01-19] MEDS: LEVOTHYROXINE 50 MCG TAB PO (06:07)
[2018-01-19] MEDS: Insulin NOVOLOG SS MILD Algorithm (SS with meals and bedtime) SC ×4 (07:05→21:00)
[2018-01-19] MEDS: POLYETHYLENE GLYCOL 17 GM PACKET PO (09:00)
[2018-01-19] MEDS: PIOGLITAZONE 15 MG TAB PO (09:25)
[2018-01-19] MEDS: FOLIC ACID 1 MG TAB PO (09:25)
[2018-01-19] MEDS: METOPROLOL 25 MG TAB PO ×2 (09:26→21:00)
[2018-01-19] MEDS: GABAPENTIN 100 MG CAP PO ×3 (09:26→20:55)
[2018-01-19] MEDS: LISINOPRIL 5 MG TAB PO (09:27)
[2018-01-19] MEDS: DOCUSATE SODIUM 100 MG CAP PO ×2 (09:27→20:55)
[2018-01-19] MEDS: ASPIRIN 81 MG TAB PO (09:27)
[2018-01-19] MEDS: TICAGRELOR 90 MG TABLET PO ×2 (09:27→20:55)
[2018-01-19] MEDS ORDERED: CARBAMIDE PEROXIDE 6.5% 15ML OTIC BOTH EARS (12:30)
[2018-01-19] MEDS ORDERED: ALBUMIN HUMAN 25% 50 ML IV (17:30)
[2018-01-19] MEDS: ATORVASTATIN 40 MG TAB PO (20:55)
[2018-01-20] MEDS: HYDROCODONE/APAP (5/325) TAB PO ×2 (01:05→22:28)
[2018-01-20] MEDS: ACCUCHECK AT 2AM (Patients on SS coverage) XX (02:00)
[2018-01-20] MEDS: PANTOPRAZOLE (EC) 40 MG TAB PO ×2 (07:00→17:42)
[2018-01-20] MEDS: LEVOTHYROXINE 50 MCG TAB PO (07:01)
[2018-01-20 07:04] LABS: ADD MAN DIFF? NO
[2018-01-20 07:05] LABS: WHITE BLOOD COUNT 5.9 10^3/ul (4.8-10.8)
[2018-01-20 07:05] LABS: BASOPHIL # 0.1 10^3/ul (0.0-0.1); BASOPHILS % 1.5 % (0.0-2.0); EOSINOPHILS # 0.3 10^3/ul (0.0-0.5); EOSINOPHILS % 4.3 % (0.0-7.0); HEMATOCRIT 28.9 % (37.0-47.0); HEMOGLOBIN 8.7 g/dl (12.0-16.0); LYMPHOCYTES # 0.9 10^3/ul (0.8-2.9); LYMPHOCYTES % 15.6 % (15.0-51.0); MEAN CORPUSCULAR HEMOGLOBIN 30.2 pg (29.0-33.0); MEAN CORPUSCULAR HGB CONC 30.1 g/dl (32.0-37.0); MEAN CORPUSCULAR VOLUME 100.3 fl (82.0-101.0); MEAN PLATELET VOLUME 11.1 fl (7.4-10.4); MONOCYTE # 0.6 10^3/ul (0.3-0.9); MONOCYTES % 10.4 % (0.0-11.0); NEUTROPHIL # 3.9 10^3/ul (1.6-7.5); PLATELET COUNT 227 10^3/UL (140-415); RED BLOOD COUNT 2.88 10^6/ul (4.20-5.40); RED CELL DISTRIBUTION WIDTH 16.4 % (11.5-14.5)
[2018-01-20] MEDS: Insulin NOVOLOG SS MILD Algorithm (SS with meals and bedtime) SC ×4 (07:05→20:39)
[2018-01-20 07:33] LABS: ANION GAP 14 (8-16); BLOOD UREA NITROGEN 21 mg/dl (7-20); CALCIUM 8.9 mg/dl (8.4-10.2); CARBON DIOXIDE 28 mmol/L (21-31); CHLORIDE 100 mmol/L (97-110); CREATININE 2.85 mg/dl (0.44-1.00); GLUCOSE 72 mg/dl (70-220); POTASSIUM 4.1 mmol/L (3.5-5.1); SODIUM 138 mmol/L (135-144)
[2018-01-20] MEDS: POLYETHYLENE GLYCOL 17 GM PACKET PO (10:16)
[2018-01-20] MEDS: PIOGLITAZONE 15 MG TAB PO (10:16)
[2018-01-20] MEDS: METOPROLOL 25 MG TAB PO ×2 (10:17→20:38)
[2018-01-20] MEDS: ASPIRIN 81 MG TAB PO (10:17)
[2018-01-20] MEDS: FOLIC ACID 1 MG TAB PO (10:18)
[2018-01-20] MEDS: GABAPENTIN 100 MG CAP PO ×3 (10:18→20:38)
[2018-01-20] MEDS: TICAGRELOR 90 MG TABLET PO ×2 (10:18→20:46)
[2018-01-20] MEDS: LISINOPRIL 5 MG TAB PO (10:18)
[2018-01-20] MEDS: DOCUSATE SODIUM 100 MG CAP PO ×2 (10:18→20:38)
[2018-01-20] MEDS: ATORVASTATIN 40 MG TAB PO (20:38)
[2018-01-21] MEDS: ACCUCHECK AT 2AM (Patients on SS coverage) XX (02:00)
[2018-01-21] MEDS: HYDROCODONE/APAP (5/325) TAB PO (04:13)
[2018-01-21] MEDS: LEVOTHYROXINE 50 MCG TAB PO (06:19)
[2018-01-21] MEDS: PANTOPRAZOLE (EC) 40 MG TAB PO (06:19)
[2018-01-21] MEDS: Insulin NOVOLOG SS MILD Algorithm (SS with meals and bedtime) SC (07:05)
[2018-01-21] MEDS: POLYETHYLENE GLYCOL 17 GM PACKET PO (09:00)
[2018-01-21] MEDS: PIOGLITAZONE 15 MG TAB PO (10:05)
[2018-01-21] MEDS: ASPIRIN 81 MG TAB PO (10:06)
[2018-01-21] MEDS: FOLIC ACID 1 MG TAB PO (10:07)
[2018-01-21] MEDS: DOCUSATE SODIUM 100 MG CAP PO (10:07)
[2018-01-21] MEDS: GABAPENTIN 100 MG CAP PO ×2 (10:08→13:00)
[2018-01-21] MEDS: METOPROLOL 25 MG TAB PO (10:08)
[2018-01-21] MEDS: LISINOPRIL 5 MG TAB PO (10:09)
[2018-01-21] MEDS: TICAGRELOR 90 MG TABLET PO (10:29)
== END 2018-01-21 14:00 | disposition home health service (06) | DRG 73 ==
LOC: VRC 21:47
DX: G62.81 Critical illness polyneuropathy (principal); N18.6 End stage renal disease; I12.0 Hypertensive chronic kidney disease with stage 5 chronic kidney disease or end stage renal disease; N39.0 Urinary tract infection, site not specified; J90 Pleural effusion, not elsewhere classified; Z99.2 Dependence on renal dialysis; R13.10 Dysphagia, unspecified; K59.00 Constipation, unspecified; K62.89 Other specified diseases of anus and rectum; Z98.84 Bariatric surgery status; E03.9 Hypothyroidism, unspecified; H61.21 Impacted cerumen, right ear; Z95.5 Presence of coronary angioplasty implant and graft; E11.21 Type 2 diabetes mellitus with diabetic nephropathy; I48.0 Paroxysmal atrial fibrillation; I25.2 Old myocardial infarction; F06.31 Mood disorder due to known physiological condition with depressive features
CPT/HCPCS: 80048; 80053; 81001; 82962; 85025; 87081; 87086; 87340; 90935; 92507; 92523; 97110; 97112; 97116; 97150; 97163; 97167; 97530; 97535; 97542